=== PATIENT | female | born 1955 | race Caucasian/White ===

== ENCOUNTER 2023-08-02 16:00 | Emergency (ER) | payer MEDICARE ==
--- OUTSIDE RECORDS SUMMARY | 2023-08-02 16:08 | XMS REPORT | Continuity of Care Document ---
:1955 Author Organization [facility] t Address [address] [place] [address] [address] [place] [address] Care Team Providers Name Role Phone STEPHANIE BAI Primary Care Physician Unavailable Tracie Pérez Attending Clinician Unavailable Stephanie Bai Attending Clinician Unavailable Amanda Cerda Attending Clinician Unavailable EARLE_GCBZW_Beto_Rodolfo Attending Clinician Unavailable Leonora Hernandez Attending Clinician Carline Attending Clinician Unavailable Mauricio Escobar Attending Clinician Unavailable Sheth_M Attending Clinician Unavailable BWilliams Attending Clinician Unavailable Bayron Pelletier Attending Clinician UNKNOWN, ATTENDING Attending Clinician Unavailable Only, Ang Db Test Attending Clinician Unavailable [place] SUPERINTENDENT [employer], Rania Attending Clinician JANETT CHAHAL Attending Clinician Unavailable Gladis Schwartz MD Attending Clinician GLADIS SCHWARTZ Attending Clinician Unavailable Tracie Pérez Admitting Clinician Unavailable [email or web address]_S Admitting Clinician Unavailable Nathan_b Admitting Clinician Unavailable Mauricio Escobar Admitting Clinician Unavailable Shecodey_M Admitting Clinician [facility] Admitting Clinician Unavailable GLADIS SCHWARTZ Admitting Clinician Unavailable Payers Payer Name Policy Type Policy Effective Date Expiration Date Sour ce Number [employer] [id number] 2021 (MEDICARE 00:00:00 REPLACEMENT HMO) MANAGED MEDICARE [id number] 2020 HMO GENERIC 00:00:00 [place] [id number] [facility] [place] [id number] [facility] [place] [id number] Common Spi rit - [facility] [place] [id number] [id number] Common Spi rit - [facility] Problems Condition Condition Condition Status Onset Resolution Last Treating Co mments Source Name Details Category Date Date Treatment Clinician Date Essential Essential Problem Com mon hypertensi (primary) Spi rit on hypertensi - [facility] on [facility] [id number] Mixed Problem Common hyperlipid Spirit emia - [facility] [id number] 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 cataract type [id number] Other Problem Common fecal Spirit abnormalit - [facility] ies [facility] [id number] Pain, Problem Commo n [id number] joint, Spirit shoulder, - [facility] left [facility] [id number] Cervical Problem Commo n pain Spirit (neck) - [facility] [id number] Encounter Problem Com mon for [id number] Cigarette Problem Com mon nicotine Spirit dependence - [facility] in [facility] Seasonal Seasonal Problem Commo n allergy allergies Spirit - [facility] Benign Benign Problem Common essential essential Spir it hypertensi hypertensi - [facility] on on [facility] Family Family Problem Common history of history of Sp gordon depression depression - [facility] COPD - Chronic Problem Common Chronic obstructiv Spiri t obstructiv e - [facility]I e pulmonary St pulmonary disease, [facility] disease unspecifie Medic al d COPD Center type [id number] Non-season Problem Com mon al Spirit allergic - [facility] rhinitis[facility] trigger [facility] [id number] Primary Problem Commo n osteoarthr Spirit itis - [facility] involving [facility] joints [facility] Allergies, Adverse Reactions, Alerts Allergy Allergy Status Severity Reaction(s) Onset Inactive Treating Comm ents Source Name Type Date Date Clinician No Known DA Active U [facility] Allergie 8-10 [place] s 00:00: d 00 [facility] NO KNOWN Drug Active Univers ALLERGIE Class ity [facility] Social History Social Habit Start Date Stop Date Quantity Comments Source History of Current Smoker Common Spi rit - Tobacco Use [facility] Exposure to Not sure [facility] Branch Sex Assigned At [birth year] [facility] 00:00:00 00:00:00 [facility] Smoking Status Start Date Stop Date Source Unknown if ever smoked [facility] y [facility] Current Smoker 2023-01-19 00:00:00 Common Spiri t - [facility] Medications Ordered Filled Start Stop Current Ordering Indication Dosage Frequency Signature Comments Components Source Medication Medication Date Date Medication? Clinician (SIG) Name Name Medrol 4 MG Medrol 4 MG No Medrol 4 4-11 MG 00:00: 00 Medrol 4 MG Medrol 4 MG No Medrol 4 4-11 MG 00:00: 00 Medrol 4 MG Medrol 4 MG No Medrol 4 4-11 MG 00:00: 00 Medrol 4 MG Medrol 4 MG No Medrol 4 4-11 MG 00:00: 00 Medrol 4 MG Medrol 4 MG No Medrol 4 4-11 MG 00:00: 00 Medrol 4 MG Medrol 4 MG 0 No Medrol 4 4-11 MG 00:00: 00 Mobic 7.5 Mobic 7.5 2021- No 1{table QD Mobic 7.5 MG MG 4-11 05-11 t} MG 00:00: 00:00 00 :00 Mobic 7.5 Mobic 7.5 0 2021- No 1{table QD Mobic 7.5 MG MG 4-11 05-11 t} MG 00:00: 00:00 00 :00 Mobic 7.5 Mobic 7.5 0 2021- No 1{table QD Mobic 7.5 MG MG 4-11 05-11 t} MG 00:00: 00:00 00 :00 Losartan Losartan 2021-0 No 1{table QD Losartan Potassium Potassium 3-04 t} Potassium 100 MG 100 MG 00:00: 100 MG 00 Losartan Losartan 2021-0 No 1{table QD Losartan Potassium Potassium 3-04 t} Potassium 100 MG 100 MG 00:00: 100 MG 00 Losartan Losartan 2021-0 No 1{table QD Losartan Potassium Potassium 3-04 t} Potassium 100 MG 100 MG 00:00: 100 MG 00 Losartan Losartan 2021-0 No 1{table QD Losartan Potassium Potassium 3-04 t} Potassium 100 MG 100 MG 00:00: 100 MG 00 Losartan Losartan 2021-0 No 1{table QD Losartan Potassium Potassium 3-04 t} Potassium 100 MG 100 MG 00:00: 100 MG 00 Losartan Losartan 2021-0 No 1{table QD Losartan Potassium Potassium 3-04 t} Potassium 100 MG 100 MG 00:00: 100 MG 00 Losartan Losartan 2021-0 No 1{table QD Losartan Potassium Potassium 3-04 t} Potassium 100 MG 100 MG 00:00: 100 MG 00 Varenicline Varenicline 2021- No BID Vareniclin Tartrate 1 Tartrate 1 12-3015 e Tartrate MG MG 00:00: 00:00 1 MG 00 :00 Varenicline Varenicline 2021- No BID Vareniclin Tartrate 1 Tartrate 1 12-3015 e Tartrate MG MG 00:00: 00:00 1 MG 00 :00 Varenicline Varenicline 2021- No BID Vareniclin Tartrate 1 Tartrate 1 12-30-15 e Tartrate MG MG 00:00: 00:00 1 MG 00 :00 Varenicline Varenicline 2021- No BID Vareniclin Tartrate 1 Tartrate 1 3-04 08-03 e Tartrate MG MG 00:00: 00:00 1 MG 00 :00 Varenicline Varenicline 0 2021- No BID Vareniclin Tartrate 1 Tartrate 1 12-30 e Tartrate MG MG 00:00: 00:00 1 MG 00 :00 Varenicline Varenicline 2021-0 2- No BID Vareniclin Tartrate 1 Tartrate 1 12-30 e Tartrate MG MG 00:00: 00:00 1 MG 00 :00 Varenicline Varenicline 2021-0 2- No BID Vareniclin Tartrate 1 Tartrate 1 12-30 e Tartrate MG MG 00:00: 00:00 1 MG 00 :00 Varenicline Varenicline 2021-0 2021- No BID Vareniclin Tartrate 1 Tartrate 1 12-30 e Tartrate MG MG 00:00: 00:00 1 MG 00 :00 Varenicline Varenicline 2021-0 2021- No BID Vareniclin Tartrate 1 Tartrate 1 12-30 e Tartrate MG MG 00:00: 00:00 1 MG 00 :00 Varenicline Varenicline 0 2- No BID Vareniclin Tartrate 1 Tartrate 1 12-30 e Tartrate MG MG 00:00: 00:00 1 MG 00 :00 Varenicline Varenicline 0 2- No QD Vareniclin Tartrate Tartrate 12-30 e Tartrate 0.5 MG 0.5 MG 00:00: 00:00 0.5 MG 00 :00 Meloxicam Meloxicam 2- No 1{table QD Meloxicam 7.5 MG 7.5 MG 12-30 t} 7.5 MG 00:00: 00:00 00 :00 Atorvastati Atorvastati 2020- No 1{table QD Atorvastat n Calcium n Calcium 2-03 t} in Calcium 40 MG 40 MG 00:00: 40 MG 00 Atorvastati Atorvastati 2020- No 1{table QD Atorvastat n Calcium n Calcium 2-03 t} in Calcium 40 MG 40 MG 00:00: 40 MG 00 Atorvastati Atorvastati 2020-10 No 1{table QD Atorvastat n Calcium n Calcium 2-03 t} in Calcium 40 MG 40 MG 00:00: 40 MG 00 Atorvastati Atorvastati 2020-10 No 1{table QD n Calcium n Calcium 2-03 t} 40 MG 40 MG 00:00: 00 Atorvastati Atorvastati 2020-10 No 1{table QD Atorvastat n Calcium n Calcium 2-03 t} in Calcium 40 MG 40 MG 00:00: 40 MG 00 Atorvastati Atorvastati 2020-10 No 1{table QD Atorvastat n Calcium n Calcium 2-03 t} in Calcium 40 MG 40 MG 00:00: 40 MG 00 Atorvastati Atorvastati 2020-10 No 1{table QD Atorvastat n Calcium n Calcium 2-03 t} in Calcium 40 MG 40 MG 00:00: 40 MG 00 Atorvastati Atorvastati 2020-10 No 1{table QD Atorvastat n Calcium n Calcium 2-03 t} in Calcium 40 MG 40 MG 00:00: 40 MG 00 methylpredn 2020-10 No 125mg 125 mg, U nivers isolone sod 11-13 Slow IV ity of succ 04:00: 03:02 Push, ONCE [place] (SOLU-MEDRO 00 :00 NOW, 1 Medica l L) dose, On Branch injection Mon 125 mg 09/12/21 at 2200, ANGELA FENTanyl PF 2020-10- No 100ug 100 mcg, Univers (SUBLIMAZE 11-13 Slow IV ity o f (PF)) 04:00: 03:02 Push, [place] injection 00 :00 ONCE, 1 Medical 100 mcg dose, On Branch 09/12/21 at 2200, Routine ondansetron 2020-10- No 4mg 4 mg, Slow Univers (ZOFRAN 11-13 IV Push, ity of (PF)) 02:30: 01:30 ONCE, 1 [place] injection 4 00 :00 dose, On Medi elie mg Mon Branch 09/12/21 at 2030, ANGELA morpHINE 2020-10- No 4mg 4 mg, Slow Un elizabeth injection 4 1-16 11-16 IV Push, ity of mg 02:15: 01:30 ONCE, 1 [place] 00 :00 dose, On Medical Mon Branch 09/12/21 at 2015, ANGELA methylPREDN 2020-10 Yes [id number] Take by [facility] ISolone 4 1-15 mouth ity of mg tablets 00:00: [place]INSTRU [place] 00 CTIONS. Medical follow Branch package directions methylPREDN 2020-10 Yes [id number] Take by [facility] ISolone 4 1-15 mouth ity of mg tablets 00:00: SEE-INSTRU [place] 00 CTIONS. Medical follow Branch package directions HYDROcodone 2020-10- No [id number] 1{tbl} Take 1 U nivers -acetaminop 15 - tablet by it y of arianna (NORCO) 00:00: 05:59 mouth [place] 7.5-325 mg 00 :00 every 8 Medica l per tablet (eight) Branch hours as needed for Pain for up to 7 days. Indication s: acute pain Diclofenac Diclofenac 2020-10- No QID Diclofenac Sodium 1 % Sodium 1 % 0-04 11-03 Sodium 1 % 00:00: 00:00 00 :00 Diclofenac Diclofenac 2020-10- No QID Diclofenac Sodium 1 % Sodium 1 % 0-04 11-03 Sodium 1 % 00:00: 00:00 00 :00 Diclofenac Diclofenac 2020-10- No QID Diclofenac Sodium 1 % Sodium 1 % 0-04 11-03 Sodium 1 % 00:00: 00:00 00 :00 Losartan Losartan 2019-0 Yes Amanda 1 tablet Common Potassium Potassium 9-11 Prashant Spir it 00:00: - [facility] 00 [facility] Budesonide- Budesonide- 2020-0 2020- No Amanda 2 puffs Common Formoterol Formoterol 9-11 12-10 Prashant S pirit Fumarate Fumarate 00:00: 00:00 - CH I 00 :00 [facility] Losartan Losartan No 1{table QD Losartan Potassium Potassium t} Potassium 100 MG 100 MG 100 MG Ipratropium Ipratropium No 1{puff_ QID Ipratropiu -Albuterol -Albuterol as_need m-Albutero 20-100 20-100 ed} l 20-100 MCG/ACT MCG/ACT MCG/ACT EQ Allergy EQ Allergy No EQ Allergy Relief 10 Relief 10 Relief 10 MG MG MG Breztri Breztri No 2{puffs BID Breztri Aerosphere Aerosphere } Aerosphere 160-9-4.8 160-9-4.8 160-9-4.8 MCG/ACT MCG/ACT MCG/ACT hydroCHLORO hydroCHLORO No 1{table QD hydroCHLOR thiazide 25 thiazide 25 t_in_th Othiazide MG MG e_morni 25 MG ng} Losartan Losartan No 1{table QD Losartan Potassium Potassium t} Potassium 50 MG 50 MG 50 MG Claritin 10 Claritin 10 No 1{table QD Claritin MG MG t} 10 MG Ipratropium Ipratropium No 1{puff_ QID Ipratropiu -Albuterol -Albuterol as_need m-Albutero 20-100 20-100 ed} l 20-100 MCG/ACT MCG/ACT MCG/ACT Breztri Breztri No 2{puffs BID Breztri Aerosphere Aerosphere } Aerosphere 160-9-4.8 160-9-4.8 160-9-4.8 MCG/ACT MCG/ACT MCG/ACT hydroCHLORO hydroCHLORO No hydroCHLOR thiazide 25 thiazide 25 Othiazide MG MG 25 MG hydroCHLORO hydroCHLORO No hydroCHLOR thiazide 25 thiazide 25 Othiazide MG MG 25 MG Breztri Breztri No 2{puffs BID Breztri Aerosphere Aerosphere } Aerosphere 160-9-4.8 160-9-4.8 160-9-4.8 MCG/ACT MCG/ACT MCG/ACT Ipratropium Ipratropium No 1{puff_ QID Ipratropiu -Albuterol -Albuterol as_need m-Albutero 20-100 20-100 ed} l 20-100 MCG/ACT MCG/ACT MCG/ACT Losartan Losartan No 1{table QD Losartan Potassium Potassium t} Potassium 50 MG 50 MG 50 MG Claritin 10 Claritin 10 No 1{table QD Claritin MG MG t} 10 MG hydroCHLORO hydroCHLORO No hydroCHLOR thiazide 25 thiazide 25 Othiazide MG MG 25 MG Breztri Breztri No 2{puffs BID Breztri Aerosphere Aerosphere } Aerosphere 160-9-4.8 160-9-4.8 160-9-4.8 MCG/ACT MCG/ACT MCG/ACT Ipratropium Ipratropium No 1{puff_ QID Ipratropiu -Albuterol -Albuterol as_need m-Albutero 20-100 20-100 ed} l 20-100 MCG/ACT MCG/ACT MCG/ACT Losartan Losartan No 1{table QD Losartan Potassium Potassium t} Potassium 50 MG 50 MG 50 MG Claritin 10 Claritin 10 No 1{table QD Claritin MG MG t} 10 MG Ipratropium Ipratropium No 1{puff_ QID Ipratropiu -Albuterol -Albuterol as_need m-Albutero 20-100 20-100 ed} l 20-100 MCG/ACT MCG/ACT MCG/ACT Claritin 10 Claritin 10 No 1{table QD Claritin MG MG t} 10 MG hydroCHLORO hydroCHLORO No 1{table QD hydroCHLOR thiazide 25 thiazide 25 t_in_th Othiazide MG MG e_morni 25 MG ng} Losartan Losartan No 1{table QD Losartan Potassium Potassium t} Potassium 50 MG 50 MG 50 MG Breztri Breztri No 2{puffs BID Breztri Aerosphere Aerosphere } Aerosphere 160-9-4.8 160-9-4.8 160-9-4.8 MCG/ACT MCG/ACT MCG/ACT Ipratropium Ipratropium No 1{puff_ QID Ipratropiu -Albuterol -Albuterol as_need m-Albutero 20-100 20-100 ed} l 20-100 MCG/ACT MCG/ACT MCG/ACT Claritin 10 Claritin 10 No 1{table QD Claritin MG MG t} 10 MG hydroCHLORO hydroCHLORO No 1{table QD hydroCHLOR thiazide 25 thiazide 25 t_in_th Othiazide MG MG e_morni 25 MG ng} Losartan Losartan No 1{table QD Losartan Potassium Potassium t} Potassium 50 MG 50 MG 50 MG Breztri Breztri No 2{puffs BID Breztri Aerosphere Aerosphere } Aerosphere 160-9-4.8 160-9-4.8 160-9-4.8 MCG/ACT MCG/ACT MCG/ACT Ipratropium Ipratropium No 1{puff_ QID Ipratropiu -Albuterol -Albuterol as_need m-Albutero 20-100 20-100 ed} l 20-100 MCG/ACT MCG/ACT MCG/ACT Claritin 10 Claritin 10 No 1{table QD Claritin MG MG t} 10 MG hydroCHLORO hydroCHLORO No 1{table QD hydroCHLOR thiazide 25 thiazide 25 t_in_th Othiazide MG MG e_morni 25 MG ng} Losartan Losartan No 1{table QD Losartan Potassium Potassium t} Potassium 50 MG 50 MG 50 MG Breztri Breztri No 2{puffs BID Breztri Aerosphere Aerosphere } Aerosphere 160-9-4.8 160-9-4.8 160-9-4.8 MCG/ACT MCG/ACT MCG/ACT Ipratropium Ipratropium No 1{puff_ QID -Albuterol -Albuterol as_need 20-100 20-100 ed} MCG/ACT MCG/ACT Breztri Breztri No 2{puffs BID Aerosphere Aerosphere } 160-9-4.8 160-9-4.8 MCG/ACT MCG/ACT hydroCHLORO hydroCHLORO No 1{table QD thiazide 25 thiazide 25 t_in_th MG MG e_morni ng} Claritin 10 Claritin 10 No 1{table QD MG MG t} Losartan Losartan No 1{table QD Potassium Potassium t} 50 MG 50 MG Ipratropium Ipratropium No 1{puff_ QID Ipratropiu -Albuterol -Albuterol as_need m-Albutero 20-100 20-100 ed} l 20-100 MCG/ACT MCG/ACT MCG/ACT Breztri Breztri No 2{puffs BID Breztri Aerosphere Aerosphere } Aerosphere 160-9-4.8 160-9-4.8 160-9-4.8 MCG/ACT MCG/ACT MCG/ACT hydroCHLORO hydroCHLORO No 1{table QD hydroCHLOR thiazide 25 thiazide 25 t_in_th Othiazide MG MG e_morni 25 MG ng} Claritin 10 Claritin 10 No 1{table QD Claritin MG MG t} 10 MG Losartan Losartan No 1{table QD Losartan Potassium Potassium t} Potassium 50 MG 50 MG 50 MG Ipratropium Ipratropium No 1{puff_ QID Ipratropiu -Albuterol -Albuterol as_need m-Albutero 20-100 20-100 ed} l 20-100 MCG/ACT MCG/ACT MCG/ACT Breztri Breztri No 2{puffs BID Breztri Aerosphere Aerosphere } Aerosphere 160-9-4.8 160-9-4.8 160-9-4.8 MCG/ACT MCG/ACT MCG/ACT hydroCHLORO hydroCHLORO No 1{table QD hydroCHLOR thiazide 25 thiazide 25 t_in_th Othiazide MG MG e_morni 25 MG ng} Claritin 10 Claritin 10 No 1{table QD Claritin MG MG t} 10 MG Losartan Losartan No 1{table QD Losartan Potassium Potassium t} Potassium 50 MG 50 MG 50 MG Ipratropium Ipratropium No 1{puff_ QID Ipratropiu -Albuterol -Albuterol as_need m-Albutero 20-100 20-100 ed} l 20-100 MCG/ACT MCG/ACT MCG/ACT Breztri Breztri No 2{puffs BID Breztri Aerosphere Aerosphere } Aerosphere 160-9-4.8 160-9-4.8 160-9-4.8 MCG/ACT MCG/ACT MCG/ACT hydroCHLORO hydroCHLORO No 1{table QD hydroCHLOR thiazide 25 thiazide 25 t_in_th Othiazide MG MG e_morni 25 MG ng} Claritin 10 Claritin 10 No 1{table QD Claritin MG MG t} 10 MG Losartan Losartan No 1{table QD Losartan Potassium Potassium t} Potassium 50 MG 50 MG 50 MG Ipratropium Ipratropium No 1{puff_ QID Ipratropiu -Albuterol -Albuterol as_need m-Albutero 20-100 20-100 ed} l 20-100 MCG/ACT MCG/ACT MCG/ACT Breztri Breztri No 2{puffs BID Breztri Aerosphere Aerosphere } Aerosphere 160-9-4.8 160-9-4.8 160-9-4.8 MCG/ACT MCG/ACT MCG/ACT hydroCHLORO hydroCHLORO No 1{table QD hydroCHLOR thiazide 25 thiazide 25 t_in_th Othiazide MG MG e_morni 25 MG ng} Claritin 10 Claritin 10 No 1{table QD Claritin MG MG t} 10 MG Losartan Losartan No 1{table QD Losartan Potassium Potassium t} Potassium 50 MG 50 MG 50 MG Ipratropium Ipratropium No 1{puff_ QID Ipratropiu -Albuterol -Albuterol as_need m-Albutero 20-100 20-100 ed} l 20-100 MCG/ACT MCG/ACT MCG/ACT Losartan Losartan No 1{table QD Losartan Potassium Potassium t} Potassium 50 MG 50 MG 50 MG hydroCHLORO hydroCHLORO No 1{table QD hydroCHLOR thiazide 25 thiazide 25 t_in_th Othiazide MG MG e_morni 25 MG ng} Atorvastati Atorvastati No 1{table QD Atorvastat n Calcium n Calcium t} in Calcium 40 MG 40 MG 40 MG Ipratropium Ipratropium No 1{puff_ QID Ipratropiu -Albuterol -Albuterol as_need m-Albutero 20-100 20-100 ed} l 20-100 MCG/ACT MCG/ACT MCG/ACT Losartan Losartan No 1{table QD Losartan Potassium Potassium t} Potassium 50 MG 50 MG 50 MG hydroCHLORO hydroCHLORO No 1{table QD hydroCHLOR thiazide 25 thiazide 25 t_in_th Othiazide MG MG e_morni 25 MG ng} Atorvastati Atorvastati No 1{table QD Atorvastat n Calcium n Calcium t} in Calcium 40 MG 40 MG 40 MG Ipratropium Ipratropium No 1{puff_ QID Ipratropiu -Albuterol -Albuterol as_need m-Albutero 20-100 20-100 ed} l 20-100 MCG/ACT MCG/ACT MCG/ACT Losartan Losartan No 1{table QD Losartan Potassium Potassium t} Potassium 50 MG 50 MG 50 MG hydroCHLORO hydroCHLORO No 1{table QD hydroCHLOR thiazide 25 thiazide 25 t_in_th Othiazide MG MG e_morni 25 MG ng} Atorvastati Atorvastati No 1{table QD Atorvastat n Calcium n Calcium t} in Calcium 40 MG 40 MG 40 MG Ipratropium Ipratropium No 1{puff_ QID Ipratropiu -Albuterol -Albuterol as_need m-Albutero 20-100 20-100 ed} l 20-100 MCG/ACT MCG/ACT MCG/ACT hydroCHLORO hydroCHLORO No 1{table QD hydroCHLOR thiazide 25 thiazide 25 t_in_th Othiazide MG MG e_morni 25 MG ng} Atorvastati Atorvastati No 1{table QD Atorvastat n Calcium n Calcium t} in Calcium 40 MG 40 MG 40 MG Losartan Losartan No 1{table QD Losartan Potassium Potassium t} Potassium 50 MG 50 MG 50 MG Atorvastati Atorvastati No 1{table QD Atorvastat n Calcium n Calcium t} in Calcium 40 MG 40 MG 40 MG hydroCHLORO hydroCHLORO No 1{table QD hydroCHLOR thiazide 25 thiazide 25 t_in_th Othiazide MG MG e_morni 25 MG ng} Ipratropium Ipratropium No 1{puff_ QID Ipratropiu -Albuterol -Albuterol as_need m-Albutero 20-100 20-100 ed} l 20-100 MCG/ACT MCG/ACT MCG/ACT Losartan Losartan No 1{table QD Losartan Potassium Potassium t} Potassium 50 MG 50 MG 50 MG Atorvastati Atorvastati No 1{table QD Atorvastat n Calcium n Calcium t} in Calcium 40 MG 40 MG 40 MG hydroCHLORO hydroCHLORO No 1{table QD hydroCHLOR thiazide 25 thiazide 25 t_in_th Othiazide MG MG e_morni 25 MG ng} Ipratropium Ipratropium No 1{puff_ QID Ipratropiu -Albuterol -Albuterol as_need m-Albutero 20-100 20-100 ed} l 20-100 MCG/ACT MCG/ACT MCG/ACT Losartan Losartan No 1{table QD Losartan Potassium Potassium t} Potassium 50 MG 50 MG 50 MG hydroCHLORO hydroCHLORO No 1{table QD hydroCHLOR thiazide 25 thiazide 25 t_in_th Othiazide MG MG e_morni 25 MG ng} Losartan Losartan No 1{table QD Losartan Potassium Potassium t} Potassium 50 MG 50 MG 50 MG Ipratropium Ipratropium No 1{puff_ QID Ipratropiu -Albuterol -Albuterol as_need m-Albutero 20-100 20-100 ed} l 20-100 MCG/ACT MCG/ACT MCG/ACT Atorvastati Atorvastati No 1{table QD Atorvastat n Calcium n Calcium t} in Calcium 40 MG 40 MG 40 MG Ipratropium Ipratropium No 1{puff_ QID Ipratropiu -Albuterol -Albuterol as_need m-Albutero 20-100 20-100 ed} l 20-100 MCG/ACT MCG/ACT MCG/ACT hydroCHLORO hydroCHLORO No 1{table QD hydroCHLOR thiazide 25 thiazide 25 t_in_th Othiazide MG MG e_morni 25 MG ng} Atorvastati Atorvastati No 1{table QD Atorvastat n Calcium n Calcium t} in Calcium 40 MG 40 MG 40 MG Losartan Losartan No 1{table QD Losartan Potassium Potassium t} Potassium 100 MG 100 MG 100 MG Breztri Breztri No 2{puffs BID Breztri Aerosphere Aerosphere } Aerosphere 160-9-4.8 160-9-4.8 160-9-4.8 MCG/ACT MCG/ACT MCG/ACT Ipratropium Ipratropium No 1{puff_ QID Ipratropiu -Albuterol -Albuterol as_need m-Albutero 20-100 20-100 ed} l 20-100 MCG/ACT MCG/ACT MCG/ACT hydroCHLORO hydroCHLORO No 1{table QD hydroCHLOR thiazide 25 thiazide 25 t_in_th Othiazide MG MG e_morni 25 MG ng} Atorvastati Atorvastati No 1{table QD Atorvastat n Calcium n Calcium t} in Calcium 40 MG 40 MG 40 MG Losartan Losartan No 1{table QD Losartan Potassium Potassium t} Potassium 100 MG 100 MG 100 MG Breztri Breztri No 2{puffs BID Breztri Aerosphere Aerosphere } Aerosphere 160-9-4.8 160-9-4.8 160-9-4.8 MCG/ACT MCG/ACT MCG/ACT Ipratropium Ipratropium No 1{puff_ QID Ipratropiu -Albuterol -Albuterol as_need m-Albutero 20-100 20-100 ed} l 20-100 MCG/ACT MCG/ACT MCG/ACT hydroCHLORO hydroCHLORO No 1{table QD hydroCHLOR thiazide 25 thiazide 25 t_in_th Othiazide MG MG e_morni 25 MG ng} Atorvastati Atorvastati No 1{table QD Atorvastat n Calcium n Calcium t} in Calcium 40 MG 40 MG 40 MG Losartan Losartan No 1{table QD Losartan Potassium Potassium t} Potassium 100 MG 100 MG 100 MG Breztri Breztri No 2{puffs BID Breztri Aerosphere Aerosphere } Aerosphere 160-9-4.8 160-9-4.8 160-9-4.8 MCG/ACT MCG/ACT MCG/ACT Atorvastati Atorvastati No 1{table QD Atorvastat n Calcium n Calcium t} in Calcium 40 MG 40 MG 40 MG Varenicline Varenicline No Vareniclin Tartrate 1 Tartrate 1 e Tartrate MG MG 1 MG Losartan Losartan No 1{table QD Losartan Potassium Potassium t} Potassium 100 MG 100 MG 100 MG Ipratropium Ipratropium No 1{puff_ QID Ipratropiu -Albuterol -Albuterol as_need m-Albutero 20-100 20-100 ed} l 20-100 MCG/ACT MCG/ACT MCG/ACT EQ Allergy EQ Allergy No EQ Allergy Relief 10 Relief 10 Relief 10 MG MG MG Breztri Breztri No 2{puffs BID Breztri Aerosphere Aerosphere } Aerosphere 160-9-4.8 160-9-4.8 160-9-4.8 MCG/ACT MCG/ACT MCG/ACT hydroCHLORO hydroCHLORO No 1{table QD hydroCHLOR thiazide 25 thiazide 25 t_in_th Othiazide MG MG e_morni 25 MG ng} Breztri Breztri No 2{puffs BID Breztri Aerosphere Aerosphere } Aerosphere 160-9-4.8 160-9-4.8 160-9-4.8 MCG/ACT MCG/ACT MCG/ACT Losartan Losartan No 1{table QD Losartan Potassium Potassium t} Potassium 100 MG 100 MG 100 MG hydroCHLORO hydroCHLORO No 1{table QD hydroCHLOR thiazide 25 thiazide 25 t_in_th Othiazide MG MG e_morni 25 MG ng} Varenicline Varenicline No Vareniclin Tartrate 1 Tartrate 1 e Tartrate MG MG 1 MG EQ Allergy EQ Allergy No EQ Allergy Relief 10 Relief 10 Relief 10 MG MG MG Ipratropium Ipratropium No 1{puff_ QID Ipratropiu -Albuterol -Albuterol as_need m-Albutero 20-100 20-100 ed} l 20-100 MCG/ACT MCG/ACT MCG/ACT Atorvastati Atorvastati No 1{table QD Atorvastat n Calcium n Calcium t} in Calcium 40 MG 40 MG 40 MG Atorvastati Atorvastati No 1{table QD Atorvastat n Calcium n Calcium t} in Calcium 40 MG 40 MG 40 MG Varenicline Varenicline No Vareniclin Tartrate 1 Tartrate 1 e Tartrate MG MG 1 MG Claritin 10 Claritin 10 2021- No 1{table QD Claritin MG MG 07-13 t} 10 MG 00:00 :00 Claritin 10 Claritin 10 2021- No 1{table QD Claritin MG MG 07-13 t} 10 MG 00:00 :00 Claritin 10 Claritin 10 2021- No 1{table QD Claritin MG MG 07-13 t} 10 MG 00:00 :00 Claritin 10 Claritin 10 2021- No 1{table QD Claritin MG MG 03-30 t} 10 MG 00:00 :00 Breztri Breztri 2021- No 2{puffs BID Breztri Sandagphere Aerosphere 03-30 } Aerosphere 160-9-4.8 160-9-4.8 00:00 160-9-4.8 MCG/ACT MCG/ACT :00 MCG/ACT Claritin 10 Claritin 10 2021- No 1{table QD Claritin MG MG 03-30 t} 10 MG 00:00 :00 Breztri Breztri 2021- No 2{puffs BID Breztri Aerosphere Aerosphere 03-30 } Aerosphere 160-9-4.8 160-9-4.8 00:00 160-9-4.8 MCG/ACT MCG/ACT :00 MCG/ACT Claritin 10 Claritin 10 2021- No 1{table QD Claritin MG MG 03-30 t} 10 MG 00:00 :00 Breztri Breztri 2021- No 2{puffs BID Breztri Aerosphere Aerosphere 03-30 } Aerosphere 160-9-4.8 160-9-4.8 00:00 160-9-4.8 MCG/ACT MCG/ACT :00 MCG/ACT Claritin 10 Claritin 10 1{table QD Claritin MG MG 03-30 t} 10 MG 00:00 :00 Breztri Breztri No 2{puffs BID Breztri Aerosphere Aerosphere 03-30 } Aerosphere 160-9-4.8 160-9-4.8 00:00 160-9-4.8 MCG/ACT MCG/ACT :00 MCG/ACT Breztri Breztri No 2{puffs BID Breztri Aerosphere Aerosphere 03-30 } Aerosphere 160-9-4.8 160-9-4.8 00:00 160-9-4.8 MCG/ACT MCG/ACT :00 MCG/ACT Claritin 10 Claritin 10 No 1{table QD Claritin MG MG 03-30 t} 10 MG 00:00 :00 Breztri Breztri No 2{puffs BID Breztri Aerosphere Aerosphere 03-30 } Aerosphere 160-9-4.8 160-9-4.8 00:00 160-9-4.8 MCG/ACT MCG/ACT :00 MCG/ACT Claritin 10 Claritin 10 No 1{table QD Claritin MG MG 03-30 t} 10 MG 00:00 :00 Vital Signs Vital Name Observation Time Observation Value Comments Source height 2022-07-25 14:00:00 65.5 [in_i] [facility] S [facility] weight 2022-07-25 14:00:00 153 [lb_av] [facility] bmi 2022-07-25 14:00:00 25.07 kg/m2 [facility] height 2022-04-14 14:40:00 65.5 [in_i] Common S pirit [facility] weight 2022-04-14 14:40:00 151.0 [lb_av] Common [facility] temperature 2022-04-14 14:40:00 97.7 [degF] Common S pirit [facility] bmi 2022-04-14 14:40:00 24.74 kg/m2 [facility] oximetry 2022-04-14 14:40:00 98 % [facility] respiratory rate 2022-04-14 14:40:00 16 /min Comm on [facility] blood pressure 2022-04-14 14:40:00 132 mm[Hg] Common [facility] - systolic [facility] blood pressure 2022-04-14 14:40:00 78 mm[Hg] Common [facility] - diastolic [facility] height 2022-02-06 14:30:00 65.5 [in_i] Common [facility] weight 2022-02-06 14:30:00 157 [lb_av] [facility] bmi 2022-02-06 14:30:00 25.73 kg/m2 Common [facility] blood pressure 2022-02-06 14:30:00 132 mm[Hg] Common [facility] - systolic [facility] blood pressure 2022-02-06 14:30:00 82 mm[Hg] Common [facility] - diastolic [facility] height 2021-12-30 13:20:00 65.5 [in_i] Common [facility] weight 2021-12-30 13:20:00 160.0 [lb_av] Common [facility] temperature 2021-12-30 13:20:00 97.2 [degF] Common [facility] bmi 2021-12-30 13:20:00 26.22 kg/m2 [facility] oximetry 2021-12-30 13:20:00 97 % [facility] respiratory rate 2021-12-30 13:20:00 16 /min Comm on [facility] blood pressure 2021-12-30 13:20:00 142 mm[Hg] Common [facility] - systolic [facility] blood pressure 2021-12-30 13:20:00 76 mm[Hg] Common [facility] - diastolic [facility] height 2021-11-15 11:40:00 65.5 [in_i] [facility] weight 2021-11-15 11:40:00 159 [lb_av] [facility] bmi 2021-11-15 11:40:00 26.05 kg/m2 Common [facility] height 2021-09-30 16:40:00 65.5 [in_i] [facility] weight 2021-09-30 16:40:00 159.0 [lb_av] [facility] temperature 2021-09-30 16:40:00 97.3 [degF] [facility] bmi 2021-09-30 16:40:00 26.05 kg/m2 [facility] oximetry 2021-09-30 16:40:00 98 % [facility] respiratory rate 2021-09-30 16:40:00 16 /min Comm on [facility] blood pressure 2021-09-30 16:40:00 138 mm[Hg] Common [facility] - systolic [facility] blood pressure 2021-09-30 16:40:00 80 mm[Hg] Common [facility] - diastolic [facility] Systolic blood 2021-09-13 03:00:00 143 mm[Hg] Univer sity of pressure [facility] Diastolic blood 2021-09-13 03:00:00 70 mm[Hg] Unive rsity of pressure [facility] Heart rate 2021-09-13 03:00:00 78 /min Universi ty [facility] Respiratory rate 2021-09-13 03:00:00 18 /min [facility] Oxygen saturation in 2021-09-13 03:00:00 93 /min [facility] Arterial blood by [facility] Pulse oximetry Branch Body temperature 2021-09-13 01:01:[address] [facility] Body height 2021-09-13 01:01:00 167.6 cm [facility] Body weight 2021-09-13 01:01:00 68.04 kg [facility] BMI 2021-09-13 01:01:00 24.21 kg/m2 [facility] height 2021-08-31 14:00:00 65.5 [in_i] Common [facility] weight 2021-08-31 14:00:00 160.8 [lb_av] [facility] temperature 2021-08-31 14:00:00 97.6 [degF] Common [facility] bmi 2021-08-31 14:00:00 26.35 kg/m2 [facility] oximetry 2021-08-31 14:00:00 96 % [facility] respiratory rate 2021-08-31 14:00:00 16 /min Comm on [facility] blood pressure 2021-08-31 14:00:00 142 mm[Hg] Common [facility] - systolic [facility] blood pressure 2021-08-31 14:00:00 81 mm[Hg] Common [facility] - diastolic [facility] height 2021-08-31 14:00:00 65.5 [in_i] [facility] weight 2021-08-31 14:00:00 160.8 [lb_av] [facility] temperature 2021-08-31 14:00:00 97.6 [degF] Common [facility] bmi 2021-08-31 14:00:00 26.35 kg/m2 [facility] oximetry 2021-08-31 14:00:00 96 % Common [facility] respiratory rate 2021-08-31 14:00:00 16 /min Comm on [facility] blood pressure 2021-08-31 14:00:00 142 mm[Hg] Common [facility] - systolic [facility] blood pressure 2021-08-31 14:00:00 81 mm[Hg] [facility] - diastolic [facility] height 2021-08-01 09:30:00 65.5 [in_i] [facility] weight 2021-08-01 09:30:00 159.8 [lb_av] [facility] temperature 2021-08-01 09:30:00 98.1 [degF] [facility] bmi 2021-08-01 09:30:00 26.18 kg/m2 [facility] oximetry 2021-08-01 09:30:00 98 % [facility] respiratory rate 2021-08-01 09:30:00 16 /min Comm on [facility] blood pressure 2021-08-01 09:30:00 132 mm[Hg] [facility] - systolic [facility] blood pressure 2021-08-01 09:30:00 82 mm[Hg] [facility] diastolic [facility] Procedures Procedure Date / Time Performed Performing Clinician Sourc e [id number] 2023-03-01 00:00:00 [facility] [id number] 2023-03-01 00:00:00 [facility] [id number] 2023-03-01 00:00:00 [facility] [id number] 2023-03-01 00:00:00 [facility] [id number] 2023-03-01 00:00:00 [facility] XR SPINE THORACIC 3 2021-09-13 01:54:53 Gladis Schwartz [facility] VW Medical Branch XR SHOULDER 2+ VW 2021-09-13 01:54:53 Gladis Schwartz [facility] LEFT Medical Branch CT CERVICAL SPINE WO 2021-09-13 01:39:17 Gladis Schwartz [facility] CONTRAST Medical Branch NOTICE OF PRIVACY 2021-09-13 00:54:03 Doctor Unassigned, No Univ [facility] PRACTICES Name Medical Branch CONSENT/REFUSAL FOR 2021-09-13 00:53:31 Doctor Unassigned, No [facility] [place] DIAGNOSIS AND Name Medical Branch TREATMENT Encounters Start End Encounter Admission Attending Care Care Encounter Source Date/Time Date/Time Type Type Clinicians Facility Department ID 2023-03-01 Inpatient AYANA Damian [id number] [facility] 08:00:00 Tracie Whaley [facility] 2023-01-18 Outpatient Bai, STLMLC STLMLC [id number] Common 09:41:01 Stephanie [facility] 2022-08-11 Outpatient Bai, STLMLC STLMLC [id number] Common 11:54:01 Stephanie [facility] 2022-07-14 Outpatient Bai, STLMLC STLMLC [id number] Common 15:32:01 Stephanie [facility] 2022-04-13 Outpatient Bai, STLMLC STLMLC [id number] Common 13:00:00 Stephanie [facility] 2022-01-03 Outpatient Bai, STLMLC STLMLC [id number] Common 15:45:02 Stephanie [facility] 2021-12-14 Outpatient Bai, STLMLC STLMLC [id number] Common 14:11:01 Stephanie [facility] 2021-11-23 Outpatient Bai, STLMLC STLMLC [id number] Common 14:39:31 Stephanie [facility] 2021-11-23 Outpatient Bai, STLMLC STLMLC [id number] Common 14:36:26 Stephanie [facility] 2021-11-23 Outpatient Bai, STLMLC STLMLC [id number] Common 14:35:44 Stephanie [facility] 2021-11-23 Outpatient Bai, STLMLC STLMLC [id number] Common 14:19:24 Stephanie [facility] 2021-11-23 Outpatient Bai, STLMLC STLMLC [id number] Common 14:09:18 Stephanie 15390 [facility] 2021-11-23 Outpatient Bai, STLMLC STLMLC [id number] Common 14:07:00 Stephanie [id number] [facility] 2021-11-23 Outpatient Bai, STLMLC STLMLC [id number] Common 13:56:10 Stephanie 72071 [facility] 2021-11-23 Outpatient STLMLC STLMLC [id number] Common 13:51:12 [id number] [facility] 2021-11-23 Outpatient STLMLC STLMLC [id number] Common 13:50:33 [id number] [facility] 2021-11-23 Outpatient STLMLC STLMLC [id number] Common 13:40:50 [id number] [facility] 2021-11-23 Outpatient Prashant, STLMLC STLMLC [id number] Common 12:36:59 Amanda [id number] [facility] 2021-11-23 Outpatient Prashant, STLMLC STLMLC [id number] Common 12:36:17 Amanda 87215 [facility] 2021-11-23 Outpatient Prashant, STLMLC STLMLC [id number] Common 12:12:51 Amanda [id number] [facility] 2021-11-23 Outpatient Prashant, STLMLC STLMLC [id number] Common 12:12:15 Amanda [id number] [facility] 2021-11-23 Outpatient Prashant, STLMLC STLMLC [id number] Common 12:11:56 Amanda 13255 [facility] 2021-11-23 Outpatient Prashant, STLMLC STLMLC [id number] Common 12:06:34 Amanda 56616 [facility] 2021-11-23 Outpatient Prashant, STLMLC STLMLC [id number] Common 11:56:10 Amanda 01033 [facility] 2021-11-23 Outpatient Prashant, STLMLC STLMLC [id number] Common 11:45:22 Amanda [id number] [facility] 2023-08-01 2023-08-01 Outpatient GC_GCBZW_Ka PRIV PRIV [id number] [facility] 00:00:00 00:00:00 diyala_S [id number] Medic al 2023-08-01 2023-08-01 Outpatient GC_GCBZW_Ka PRIV PRIV [id number] [facility] 00:00:00 00:00:00 diyala_S [id number] Medic al 2023-07-31 2023-07-31 Outpatient GC_GCBZW_Ka PRIV PRIV [id number] [facility] 00:00:00 00:00:00 diyala_S [id number] Medic al 2023-06-01 2023-06-01 Care Leonora 2.16.840. 2.16.840.1. CLAC [id number] [facility] 20:30:00 20:50:00 [employer] [facility] [place] [id number]. [id number] 35Y Medical Gap [id number] Closure [id number] 2023-04-13 2023-04-13 CAV Leonora 2.16.840. 2.16.840.1. [facility] [id number] [facility] 18:30:00 19:30:00 [place] [id number]. [id number]. 2CW Medical [id number] 2023-03-27 2023-03-27 Outpatient Daniels_b JANE DMG [id number] [facility] 00:00:00 00:00:00 0530 [facility] l [facility] 2023-03-22 2023-03-22 Outpatient Daniels_b BRI DMG [id number] [facility] 00:00:00 00:00:00 0525 Medica l Group 2023-02-28 2023-03-02 Inpatient WILY FeldmanLuz, SHILPAPM MEDI.01 [id number] [facility] 12:48:00 12:28:00 Musaddiq 98 [facility] 2022-09-26 2022-09-26 Outpatient Betty_Pato GREGORY DMG [id number] [facility] 00:00:00 00:00:00 0506 [facility] l [facility] 2022-09-26 2022-09-26 Outpatient Sheth_M DM DMG [id number] [facility] 00:00:00 00:00:00 1129 [facility] l [facility] 2022-07-25 2022-07-25 OFFICE STLMLC STLMLC [id number] Co mmon 00:00:00 00:00:00 VISIT Spirit ESTAB PT - CHI LEVEL 4 [facility] 2022-06-08 2022-06-09 Inpatient ANIVAL Pérez, HCAPM MEDI.01 [id number] [facility] 12:36:00 11:44:00 Tracie 48 [facility] 2022-06-08 2022-06-08 Outpatient ANIVAL Pérez, [facility] HCAPM [id number] [facility] 12:35:00 12:35:00 [facility] [id number] [facility] 2022-05-12 2022-05-12 Outpatient BWilliams [facility] DMG [id number] [facility] 07:10:00 07:10:00 0715 Medica l Group 2022-04-25 2022-04-25 (TEL) STLMLC STLMLC [id number] Co mmon 00:00:00 00:00:00 [facility] 2022-04-17 2022-04-17 (TEL) STLMLC STLMLC [id number] Co mmon 00:00:00 00:00:00 [facility] 2022-04-14 2022-04-14 OFFICE STLMLC STLMLC [id number] Co mmon 00:00:00 00:00:00 VISIT Spirit ESTAB PT - CHI LEVEL 4 [facility] 2022-03-28 2022-03-28 (TEL) STLMLC STLMLC [id number] Co mmon 00:00:00 00:00:00 [facility] 2022-03-23 2022-03-23 (TEL) STLMLC STLMLC [id number] Co mmon 00:00:00 00:00:00 [facility] 2022-03-23 2022-03-23 (TEL) STLMLC STLMLC [id number] Co mmon 00:00:00 00:00:00 [facility] 2022-03-02 2022-03-02 (TEL) STLMLC STLMLC [id number] Co mmon 00:00:00 00:00:00 [facility] 2022-02-22 2022-02-22 (TEL) STLMLC STLMLC [id number] Co mmon 00:00:00 00:00:00 [facility] 2022-02-06 2022-02-06 OFFICE STLMLC STLMLC [id number] Co mmon 00:00:00 00:00:00 VISIT [facility] PT LEVEL 3 [facility] 2021-12-30 2021-12-30 OFFICE STLMLC STLMLC [id number] Co mmon 00:00:00 00:00:00 VISIT [facility] PT - CHI LEVEL 4 [facility] 2021-12-05 2021-12-05 CAV Vontessie 2.16.840. 2.16.840.1. CLAC [id number] [facility] 22:00:00 23:00:00 Prabhu [id number]. [id number]. [id number] [place] [id number] 2021-11-25 2021-11-25 Outpatient R [facility] [id number] Univers 09:00:00 09:00:00 [id number] [facility] 2021-11-25 2021-11-25 Outpatient R UNKNOWN, [facility] [id number] Univers 09:00:00 09:00:00 [facility] 2021-11-24 2021-11-24 (TEL) STLMLC STLMLC [id number] Co mmon 00:00:00 00:00:00 [facility] 2021-11-18 2021-11-18 (TEL) STLMLC STLMLC [id number] Co mmon 00:00:00 00:00:00 [facility] 2021-11-15 2021-11-15 OFFICE STLMLC STLMLC [id number] Co mmon 00:00:00 00:00:00 VISIT [facility] PT - CHI LEVEL 4 [facility] 2021-11-13 2021-11-13 (TEL) STLMLC STLMLC [id number] Co mmon 00:00:00 00:00:00 [facility] 2021-11-10 2021-11-10 Laboratory Only, Ang Db Test [facility] 1.2.8 40.114 [id number] Univers 19:15:00 19:30:00 Only [facility] 350.1.13.10 [facility] 4.2.7.2.686 Sorin as EMMETT?BLEA [id number] [address] MEDICAL OFFICE BUILDING 2021-11-10 2021-11-10 Outpatient R MASSIMO [facility] [id number] Univers 19:15:00 19:15:00 [facility] 2021-11-08 2021-11-08 (TEL) STLMLC STLC [id number] Co mmon 00:00:00 00:00:00 [facility] 2021-10-25 2021-10-25 [place] [id number] [facility] 05:33:00 05:33:00 1228 [facility] 2021-10-20 2021-10-20 (TEL) STLMLC STLMLC [id number] Co mmon 00:00:00 00:00:00 [facility] 2021-10-12 2021-10-12 (TEL) STLMLC STLMLC [id number] Co mmon 00:00:00 00:00:00 [facility] 2021-10-12 2021-10-12 (TEL) STLMLC STLMLC [id number] Co mmon 00:00:00 00:00:00 [facility] 2021-09-30 2021-09-30 OFFICE STLMLC STLMLC [id number] Co mmon 00:00:00 00:00:00 VISIT [facility] PT - CHI LEVEL 4 [facility] 2021-09-12 2021-09-12 [facility] [id number] Univers 18:58:00 21:16:00 Gladis RODKIARA 350.1.13.10 [facility] TIA 4.2.7.2.686 [facility] [id number] [place] [id number] Branch 2021-09-12 2021-09-12 Emergency X CHRISTINE, [facility] ERT [id number] Univers 18:58:00 21:16:[address] [facility] 2021-08-31 2021-08-31 WELCOME TO STLMLC STLMLC [id number] Common 00:00:00 00:00:00 MEDICARE Spiri t PREV PHY - CHI EXAM [facility] 2021-08-31 2021-08-31 OFFICE STLMLC STLMLC [id number] Co mmon 00:00:00 00:00:00 VISIT [facility] ESTAB PT - CHI LEVEL 4 [facility] 2021-08-01 2021-08-01 OFFICE STLMLC STLMLC [id number] Co mmon 00:00:00 00:00:00 VISIT [facility] ESTAB PT - CHI LEVEL 4 [facility] 2021-07-18 2021-07-18 Outpatient STLMLC STLMLC [id number] Common 00:00:00 00:00:00 [facility] 2021-04-07 2021-04-07 Outpatient STLMLC STLMLC [id number] Common 00:00:00 00:00:00 [facility] 2021-03-17 2021-03-17 Outpatient DMG [id number] [id number] [facility] 11:00:00 11:00:00 0520 Med[facility] l Group 2020-12-31 2020-12-31 Outpatient STLMLC STLMLC [id number] Common 00:00:00 00:00:00 [facility] 2020-10-08 2020-10-08 Outpatient STLMLC STLMLC [id number] Common 00:00:00 00:00:00 [facility] 2020-09-29 2020-09-29 Outpatient STLMLC STLMLC [id number] Common 00:00:00 00:00:00 [facility] 2020-09-28 2020-09-28 Outpatient STLMLC STLMLC [id number] Common 00:00:00 00:00:00 [facility] 2020-08-13 2020-08-13 Outpatient STLMLC STLMLC [id number] Common 00:00:00 00:00:00 [facility] 2020-07-23 2020-07-23 Outpatient STLMLC STLMLC [id number] Common 00:00:00 00:00:00 [facility] 2020-07-09 2020-07-09 Outpatient [id number] Common 15:00:00 15:00:00 Mgv Spir [employer] [facility] Results Test Description Test Time Test Comments Results Result Comments Source SURGICAL 2023-03-08 16:02:00 Test Item Value Reference Range Interpretation Comme nts SURGICAL RUN DATE: (test 03/08/23 SHILPA green - LAB PAGE 1 RUN TIME: 1602 Specimen Inquiry RUN USER: INTERFACE code = PATIENT: ) GORAN BAUMAN 498 LOC: [place] U #: [id number] AGE/SX: 67/F [facility]: Mauricio Escobar MD : 56 BED: 1 DIS: 03/02/23 STATUS: DIS IN TLOC: SPEC #: [id number]:[facility]:[id number] RECD: 03/02/23523 STATUS: MELISA PIEDRA #: [id number] RAMAN: 03/01/231310 [facility] DR: Mauricio Escobar MD ENTERED: 03/02/23 SP TYPE: SURGICAL OTHR DR: Tracie Pérez MD ORDERED: [id number], [id number], ANATOMIC SPEC, SPECIMEN TRACK COPIES TO: Tracie Pérez MD [address] [phone] [place] [address] [facility] [address] [place] [address] PROCEDURE S: [id number] (03/02/23) [id number] (03/07/23) SPECIMEN TRACK (03/02/23) TISSUES: A. URETHRA NOS - LEFT UTERAL SACRAL EDOMETRIOSIS FINAL DIAGNOSIS Soft tissue, left uterosacral ligament, e xcisional biopsy:- Small fibrovascular adhesions with tattoo like pigment- Iron stain negative Comment: Negative for endometriosis/atypia/malignancy. Suggest clinical correlation. GROSS DESCRIPTION Left utero sacral endometriosis. It consists of a single brown tissue fragment measuring 0.8x 0.5 x 0.2 cm. All as A1 . Technical tissue processing and slide preparation performed at [facility],[id number], [place] [address] Unless gross only, the diagnosis is based upon microscopic examination.Immu nohistochemistry: This test was developed and its performance characteristicsdetermined by this laboratory. It has not been approved nor does it need approval by the USFDA. Appropriate positive and negative controls are reviewed and judged to be acceptable.This laboratory is certified unde r the Clinical Laboratory Improvement Amendments (CLIA-88)as qualified to perform high complexity clin [facility] laboratory testing. CONTINUED ON NEXT PAGE RUN DATE: 03/08/23 SHILPA Chavis d - LAB PAGE 2 RUN TIME: 1602 Specimen Inquiry RUN USER: INTERFACE SPEC #: 23:[facility]:[id number] PATIENT: GORAN BAUMAN #[id number] (Continued) MICROSCOPIC DESCRIPTION Micr oscopic examination is performed on all specimens and the findings areincorporated into the fin al diagnosis. Please see diagnosis for findings. CLINICAL INFORMATION Stage III uterovaginal prolapse, u terine prolapse with a predominant defect, which isrecurrent. The patient had surgery 2 years ago (a v aginal prolapse repair), voidingdysfunction (incomplete bladder emptying). Signed SIGNATURE ON FILE Bradley Calloway 03/08/23 1602 END OF REPORT [id number] 15:38:00 Test Item Value Reference Range Interpretation Comments SURGICAL (test code = SR) R UN DATE: 03/06/23 [facility] PAGE 1 RUN TIME: 1538 Specimen Inquiry RUN USER: INTERFACE P ATIENT: GORAN BAUMAN LOC: [place] U #: [id number] AGE/SX: 67/F ROOM: AzraDanyellPO10 RE02/28/23REG DR: Mauricio Escobar MD : 56 BED: 1 DIS: 03/02/23 STATUS: DIS IN TLOC: SPEC #: 23:[facility]:[id number] RECD: 03/01/23 STATUS: MELISA PIEDRA #: [id number] RAMAN: 03/01/23-[address]: Mauricio Escobar MD ENTERED: 03/01/23 SP TYPE: SURGICAL OTHR DR: Tracie Pérez MD ORDERED: [id number], ANATOMIC SPEC, SPECIMEN TRACK COPIES TO: Tracie Pérez MD [address] [phone] [place] [address] [place] [address] PROCEDURES: [id number] (03/06/23) SPECIMEN TRACK (03/01/23) TISSUES: A. UTERUS - UTERUS, CERVIX, BILATERAL TUBES, OVARIES FINAL DIAGNOSIS Uterus (112 g), fallopian tubes and ovaries, hysterectomy and bilateralsalpingo-oophorectomie s: - Cervix, mild chronic cervicitis with squamous metaplasia and Nabothian cyst- Endometrium, indeterminate pattern- Myometrium, leiomyomata x5, ranging from 0.5 to 1.3 cm- Serosa, no morphological alterations Ovaries:- Atrophic changes, bilaterally; small fibrovascular adhesion containing tattoo likepigment Fallopian tubes:- Wall and lumen identified, bilaterally; small fibrovascular adhesion containing tattoolike pigment Comment: Negative for atypia/malignancy. Suggest clinical correlation. CONTINUED ON NEXT PAGE Kennedy UN DATE: 03/06/23 [facility] PAGE 2 RUN TIME: 1538 Specimen Inquiry RUN USER: INTERFACE S PEC #: 23:[facility]:[id number] PATIENT: GORAN BAUMAN #[id number] (Continued) GROSS DESCRIPTION Uterus with bilateral fallopian tubes and ovaries. The uterus measures cornu to cornu 6.5cm, posterior to anterior 4.5 cm and fundus to cervix 9.5 cm. These uterus weighs 112 g. The cervix measures 3.8 x 3.5 cm with a cervical os transverse diameter of 0.6 cm. Theuterus is bivalved to reveal a pink smooth cervical canal of 3.2 cm in length andendometrial cavity measuring 2.7 x 1.8 cm. It is covered by endometrium of 0.2 cm inthickness. The uterine wall has a maximum thickness of 2.7 cm. Serial sectioning of theuterine wall reveals 5 white whirled well-circumscribed nodules ranging 0.5- 1.3 cm ingreatest dimension. The serosal surface is smooth and glistening. The attached rightovary measures 2.2 x 2 x 1.5 cm. Cut section reveals grossly unremarkable ovarianparenchyma. The right fallopian tube with attached fimbriated end measures 2.5 cm inlength and has a diameter of 0.6 cm. The left ovary measures 2.2 x 1.5 x 1.3 cm. Cutsections reveal grossly unremarkable bearing parenchyma. The left fallopian tube withfimbriated end measures 5.5 cm in length and has a diameter of 0.8 cm. A1 posterior cervixA2 anterior cervixA3 posterior endomyometriumA4 anterior endomyometriumA5-A7 section of nodulesA8 posterior reflection A9 right [id number] right fallopian tube cut surface with entire bisected fimbriated endA11 left ovary A12 left fallopian tube cut surface with entire bisected fimbriated end Technical tissue processing and slide preparation performed at [id number] , [place] [address] Unless gross only, the diagnosis is based upon microscopic examination.Immunohistochemistr y: This test was developed and its performance characteristicsdetermined by this laboratory. It has not been approved nor does it need approval by the USFDA. Appropriate positive and negative controls are reviewed and judged to be acceptable.This laboratory is certified under the Clinical Laboratory Improvement Amendments (CLIA-88)as qualified to perform high complexity clinical laboratory testing. MICROSCOPIC DESCRIPTION Microscopic examination is performed on all specimens and the findings areincorporated into the final diagnosis. Please see diagnosis for findings. CLINICAL INFORMATION Incomplete uterovaginal prolapse; apical prolapse CONTINUED ON NEXT PAGE R UN DATE: 03/06/23 [facility] PAGE 3 RUN TIME: 1538 Specimen Inquiry RUN USER: INTERFACE S JUN #: 23:[facility]:[id number] PATIENT: GORAN BAUMAN #[id number] (Continued) Signed SIGNATURE ON Bradley Reed 03/06/23 1538 END OF REPORT BASIC METABOLIC [id number] 06:47:00 Test Item Value Reference Range Interpretation Comments SODIUM (test code 141 mmol/L 134-147 N = NA) POTASSIUM (test 3.5 mmol/L 3.4-5.0 N code = K) CHLORIDE (test 110 mmol/L 100-108 H code = CL) CARBON DIOXIDE 28 mmol/L 21-32 N (test code = CO2) ANION GAP (test 3.0 GAP calc 4.0-15.0 L code = GAP) GLUCOSE (test code 97 MG/DL 70-110 N = GLU) BLOOD UREA 13 MG/DL 7-18 N NITROGEN (test code = BUN) GLOMERULAR >=60 max >60 The Glomerular FILTRATION RATE estimate estGFR Filtratio n Rate is a (test code = GFR) calculated parameterbased on serum Creatinin e, patient age and sex. GFR valuesless than 60 mL/min/1.73 square meters are su cative ofChronic Kidne y Disease. Values less than 15 mL/min/1.73squa re meters indicate Kidney failure. The calculation for GFR is based on the CK D-EPI (2020) calculat ion. This formulais race indifferent and is the recommended formula for GFR by the National Kidney Foundation for Adults.The GFR will not calculate i f the sex is unknown or if thepatient's ag e is <18 years. CREATININE (test 0.7 MG/DL 0.6-1.0 N code = CREAT) CALCIUM (test code 8.8 MG/DL 8.5-10.1 N = CA) CBC W/AUTO [id number] 06:32:00 Test Item Value Reference Range Interpretation Comments WHITE BLOOD CELL (test code = 14.0 K/mm3 3.5-11.0 H WBC) RED BLOOD CELL (test code = 3.82 M/mm3 4.70-6.10 L RBC) HEMOGLOBIN (test code = HGB) 11.5 G/DL 10.4-14.9 N HEMATOCRIT (test code = HCT) 34.5 % 31.5-44.1 N MEAN CELL VOLUME (test code = 90.3 Fl 84.5-98.6 N MCV) MEAN CELL HGB (test code = MCH) 30.1 pg 27.0-34.2 N MEAN CELL HGB CONCETRATION 33.3 G/DL 31.5-34.0 N (test code = MCHC) RED CELL DISTRIBUTION WIDTH 13.1 SD 11.5-14.5 N (test code = RDW) PLATELET COUNT (test code = 232 K/mm3 150-450 N PLT) MEAN PLATELET VOLUME (test code 10.90 fL 7.0-10.5 H = MPV) NEUTROPHIL % (test code = NT%) 77.5 % 40-76 H IMMATURE GRANULOCYTE % (test 0.6 % 0.0-5.0 N code = IG%) LYMPHOCYTE % (test code = LY%) 15.8 % 20.5-51.1 L MONOCYTE % (test code = MO%) 5.9 % 1.7-9.3 N EOSINOPHIL % (test code = EO%) 0.1 % 0.0-6.0 N BASOPHIL % (test code = BA%) 0.1 % 0.0-2.0 N NUCLEATED RBC % (test code = 0.0 /100WBC% 0.0-1.0 N NRBC%) NEUTROPHIL # (test code = NT#) 10.9 K/mm3 1.8-7.6 H IMMATURE GRANULOCYTE # (test 0.08 x10 3/uL 0.00-0.03 H code = IG#) LYMPHOCYTE # (test code = LY#) 2.2 K/mm3 0.6-3.2 N MONOCYTE # (test code = MO#) 0.8 K/mm3 0.3-1.1 N EOSINOPHIL # (test code = EO#) 0.0 K/mm3 0.0-0.4 N BASOPHIL # (test code = BA#) 0.0 K/mm3 0.0-0.1 N NUCLEATED RBC # (test code = 0.0 K/mm3 0.0-0.1 N NRBC#) MANUAL DIFF REQUIRED (test code NO DIFF/SCN CRITERIA = MDIFF) Comment: redundant order, do CBC in amTHROMBOPLASTIN TIME [id number] 06:49:00 Test Item Value Reference Range Interpretation Comments THROMBOPLASTIN TIME PARTIAL 25.5 SECONDS 26-35 L (test code = PTT) BASIC METABOLIC [id number] 04:50:00 Test Item Value Reference Range Interpretation Comments SODIUM (test code 142 mmol/L 134-147 N = NA) POTASSIUM (test 3.9 mmol/L 3.4-5.0 N code = K) CHLORIDE (test 110 mmol/L 100-108 H code = CL) CARBON DIOXIDE 29 mmol/L 21-32 N (test code = CO2) ANION GAP (test 3.0 GAP calc 4.0-15.0 L code = GAP) GLUCOSE (test code 106 MG/DL 70-110 N = GLU) BLOOD UREA 15 MG/DL 7-18 N NITROGEN (test code = BUN) GLOMERULAR >=60 max >60 The Glomerular FILTRATION RATE estimate estGFR Filtratio n Rate is a (test code = GFR) calculated parameterbased on serum Creatinin e, patient age and sex. GFR valuesless than 60 mL/min/1.73 square meters are su cative ofChronic Kidne y Disease. Values less than 15 mL/min/1.73squa re meters indicate Kidney failure. The calculation for GFR is based on the CK D-EPI (2020) calculat ion. This formulais race indifferent and is the recommended formula for GFR by the National Kidney Foundation for Adults.The GFR will not calculate i f the sex is unknown or if thepatient's ag e is <18 years. CREATININE (test 0.6 MG/DL 0.6-1.0 N code = CREAT) CALCIUM (test code 9.1 MG/DL 8.5-10.1 N = CA) CBC W/AUTO [id number] 04:39:00 Test Item Value Reference Range Interpretation Comments WHITE BLOOD CELL (test code = 7.6 K/mm3 3.5-11.0 N WBC) RED BLOOD CELL (test code = 4.30 M/mm3 4.70-6.10 L RBC) HEMOGLOBIN (test code = HGB) 13.1 G/DL 10.4-14.9 N HEMATOCRIT (test code = HCT) 39.4 % 31.5-44.1 N MEAN CELL VOLUME (test code = 91.6 Fl 84.5-98.6 N MCV) MEAN CELL HGB (test code = MCH) 30.5 pg 27.0-34.2 N MEAN CELL HGB CONCETRATION 33.2 G/DL 31.5-34.0 N (test code = MCHC) RED CELL DISTRIBUTION WIDTH 12.9 SD 11.5-14.5 N (test code = RDW) PLATELET COUNT (test code = 249 K/mm3 150-450 N PLT) MEAN PLATELET VOLUME (test code 10.00 fL 7.0-10.5 N = MPV) NEUTROPHIL % (test code = NT%) 54.6 % 40-76 IMMATURE GRANULOCYTE % (test 0.1 % 0.0-5.0 N code = IG%) LYMPHOCYTE % (test code = LY%) 34.9 % 20.5-51.1 N MONOCYTE % (test code = MO%) 6.3 % 1.7-9.3 N EOSINOPHIL % (test code = EO%) 3.6 % 0.0-6.0 N BASOPHIL % (test code = BA%) 0.5 % 0.0-2.0 N NUCLEATED RBC % (test code = 0.0 /100WBC% 0.0-1.0 N NRBC%) NEUTROPHIL # (test code = NT#) 4.1 K/mm3 1.8-7.6 N IMMATURE GRANULOCYTE # (test 0.01 x10 3/uL 0.00-0.03 N code = IG#) LYMPHOCYTE # (test code = LY#) 2.6 K/mm3 0.6-3.2 N MONOCYTE # (test code = MO#) 0.5 K/mm3 0.3-1.1 N EOSINOPHIL # (test code = EO#) 0.3 K/mm3 0.0-0.4 N BASOPHIL # (test code = BA#) 0.0 K/mm3 0.0-0.1 N NUCLEATED RBC # (test code = 0.0 K/mm3 0.0-0.1 N NRBC#) MANUAL DIFF REQUIRED (test code NO DIFF/SCN CRITERIA = MDIFF) UA RFLX MICR CULT IF [id number] 03:38:00 Test Item Value Reference Range Interpretation Comments UA COLOR (test code = COLU) YELLOW discript YEL/STRAW UA APPEARANCE (test code = CLEAR discript CLEAR APPU) UA GLUCOSE DIPSTICK (test NEGATIVE mg/dL NEG code = DGLUU) UA BILIRUBIN DIPSTICK (test NEGATIVE mg/dL NEG code = BILU) UA KETONE DIPSTICK (test NEGATIVE mg/dL NEG code = KETU) UA SPECIFIC GRAVITY (test <=1.005 SG 1.005-1.030 code = SGU) UA BLOOD DIPSTICK (test TRACE mg/DL NEG A code = DAVIN) UA PH DIPSTICK (test code = 6.0 pH UNITS 5.0-7.0 ORLIN) UA PROTEIN DIPSTICK (test NEGATIVE mg/dL NEG code = PROU) UA UROBILINIOGEN DIPSTICK 0.2 mg/dL <2.0 (test code = URO) UA NITRITE DIPSTICK (test NEGATIVE SCREEN NEG code = PEDRO PABLO) UA LEUKOCYTE ESTERASE NEGATIVE Leuk/mcL NEGATIVE DIPSTICK (test code = LEUU) Indication for culture: RiskForSepsis-no oth srcSOURCE OF URINE: CLEAN CATCHUR HCG [id number] 03:38:00 Test Item Value Reference Range Interpretation Comments UR HCG QUAL (test code = HCGQLU) NEGATIVE NEGATIVE Indication for culture: RiskForSepsis-no oth srcSOURCE OF URINE: CLEAN CATCH COMPREHENSIVE METABOLIC [id number] 14:39:00 Test Item Value Reference Range Interpretation Comments SODIUM (test code 141 mmol/L 134-147 N = NA) POTASSIUM (test 3.1 mmol/L 3.4-5.0 L code = K) CHLORIDE (test 106 mmol/L 100-108 N code = CL) CARBON DIOXIDE 33 mmol/L 21-32 H (test code = CO2) ANION GAP (test 2.0 GAP calc 4.0-15.0 L code = GAP) GLUCOSE (test code 108 MG/DL 70-110 N = GLU) BLOOD UREA 19 MG/DL 7-18 H NITROGEN (test code = BUN) GLOMERULAR >=60 max >60 The Glomerular FILTRATION RATE estimate estGFR Filtratio n Rate is a (test code = GFR) calculated parameterbased on serum Creatinin e, patient age and sex. GFR valuesless than 60 mL/min/1.73 square meters are su cative ofChronic Kidne y Disease. Values less than 15 mL/min/1.73squa re meters indicate Kidney failure. The calculation for GFR is based on the CK D-EPI (2020) calculat ion. This formulais race indifferent and is the recommended formula for GFR by the National Kidney Foundation for Adults.The GFR will not calculate i f the sex is unknown or if thepatient's ag e is <18 years. CREATININE (test 0.9 MG/DL 0.6-1.0 N code = CREAT) TOTAL PROTEIN 7.3 G/DL 6.4-8.2 N (test code = PROT) ALBUMIN (test code 3.7 G/DL 3.4-5.0 N = ALB) GLOBULIN (test 3.6 GM/dL code = GLOB) ALBUMIN/GLOBULIN 1.0 RATIO 1.2-2.2 L RATIO (test code = A/G) CALCIUM (test code 9.5 MG/DL 8.5-10.1 N = CA) BILIRUBIN TOTAL 0.30 MG/DL 0.2-1.2 N (test code = BILT) SGOT/AST (test 11 Unit/L 15-37 L code = AST) SGPT/ALT (test 20 Unit/L 12-78 N code = ALT) ALKALINE 92 Unit/L 45-117 N PHOSPHATASE TOTAL (test code = ALKP) BASIC METABOLIC [id number] 16:33:00 Test Item Value Reference Range Interpretation Comments SODIUM (test code 138 mmol/L 134-147 N = NA) POTASSIUM (test 3.0 mmol/L 3.4-5.0 L code = K) CHLORIDE (test 104 mmol/L 100-108 N code = CL) CARBON DIOXIDE 33 mmol/L 21-32 H (test code = CO2) ANION GAP (test 1.0 GAP calc 4.0-15.0 L code = GAP) GLUCOSE (test code 91 MG/DL 70-110 N = GLU) BLOOD UREA 17 MG/DL 7-18 N NITROGEN (test code = BUN) GLOMERULAR >=60 max >60 The Glomerular FILTRATION RATE estimate estGFR Filtratio n Rate is a (test code = GFR) calculated parameterbased on serum Creatinin e, patient age and sex. GFR valuesless than 60 mL/min/1.73 square meters are su cative ofChronic Kidne y Disease. Values less than 15 mL/min/1.73squa re meters indicate Kidney failure. The calculation for GFR is based on the CK D-EPI (2020) calculat ion. This formulais race indifferent and is the recommended formula for GFR by the National Kidney Foundation for Adults.The GFR will not calculate i f the sex is unknown or if thepatient's ag e is <18 years. CREATININE (test 0.7 MG/DL 0.6-1.0 N code = CREAT) CALCIUM (test code 9.4 MG/DL 8.5-10.1 N = CA) PROTHROMBIN [id number] 16:28:00 Test Item Value Reference Range Interpretation Comments PT PATIENT (test 12.7 SECONDS 9.3-12.9 N code = PTP) INTERNATIONAL NORMAL 1.14 INR Unit 0.8-1.2 N TARGE T INR BY RATIO (test code = INDICATIO N Indication INR) INR1. Prophylax is of venous thrombos is 2.0 - 3.0 (orthoped ic surgery), Proph ylaxis of venous throm bosis (other than hig h-risk surgery), Treat ment of Deep Vein Thrombosis/Pulm onary Embolism, Preve ntion of systemic emb olism - Tissue heart va lves, Acute Myocardia l Infarction (to prevent systemic emboli sm), Valvular heart disease, Acute Myocardial Infa rction (to prevent sys temic embolism), Valv ular heart disease, Atrial Fibrillation, Bileaflet mecha nical valve in aortic position.2. Mec hanical prosthetic valv es (high risk), 2. 5 - 3.5 Presence of Lup us Anticoagulant o r Antiphospholipi d Antibodies, Pre vention of systemic emb olism - Acute Myocardia l Infarction (to prevent recurrent infar ct). THROMBOPLASTIN TIME [id number] 16:28:00 Test Item Value Reference Range Interpretation Comments THROMBOPLASTIN TIME PARTIAL 37.7 SECONDS 26-35 H (test code = PTT) CBC W/AUTO [id number] 16:22:00 Test Item Value Reference Range Interpretation Comments WHITE BLOOD CELL (test code = 9.1 K/mm3 3.5-11.0 N WBC) RED BLOOD CELL (test code = 4.83 M/mm3 4.70-6.10 N RBC) HEMOGLOBIN (test code = HGB) 14.5 G/DL 10.4-14.9 N HEMATOCRIT (test code = HCT) 43.8 % 31.5-44.1 N MEAN CELL VOLUME (test code = 90.7 Fl 84.5-98.6 N MCV) MEAN CELL HGB (test code = MCH) 30.0 pg 27.0-34.2 N MEAN CELL HGB CONCETRATION 33.1 G/DL 31.5-34.0 N (test code = MCHC) RED CELL DISTRIBUTION WIDTH 13.0 SD 11.5-14.5 N (test code = RDW) PLATELET COUNT (test code = 304 K/mm3 150-450 N PLT) MEAN PLATELET VOLUME (test code 10.40 fL 7.0-10.5 N = MPV) NEUTROPHIL % (test code = NT%) 62.5 % 40-76 N IMMATURE GRANULOCYTE % (test 0.1 % 0.0-5.0 N code = IG%) LYMPHOCYTE % (test code = LY%) 27.8 % 20.5-51.1 N MONOCYTE % (test code = MO%) 6.4 % 1.7-9.3 N EOSINOPHIL % (test code = EO%) 2.8 % 0.0-6.0 N BASOPHIL % (test code = BA%) 0.4 % 0.0-2.0 N NUCLEATED RBC % (test code = 0.0 /100WBC% 0.0-1.0 N NRBC%) NEUTROPHIL # (test code = NT#) 5.7 K/mm3 1.8-7.6 N IMMATURE GRANULOCYTE # (test 0.01 x10 3/uL 0.00-0.03 N code = IG#) LYMPHOCYTE # (test code = LY#) 2.5 K/mm3 0.6-3.2 N MONOCYTE # (test code = MO#) 0.6 K/mm3 0.3-1.1 N EOSINOPHIL # (test code = EO#) 0.3 K/mm3 0.0-0.4 N BASOPHIL # (test code = BA#) 0.0 K/mm3 0.0-0.1 N NUCLEATED RBC # (test code = 0.0 K/mm3 0.0-0.1 N NRBC#) MANUAL DIFF REQUIRED (test code NO DIFF/SCN CRITERIA = MDIFF) - XR CHEST 1 [id number] 16:04:00 [facility] 1955 Sex: F Name: GORAN BAUMAN [facility] : 1955 Age/S: 67 / F [id number] Unit #: [id number] Loc: [place] [address] Phys: Tracie Pérez MD Acct: [id number] Dis Date: Status: PRE [facility] [place] PHONE #: [phone] Exam Date: 02/27/2023 1350 FAX #: Reason: PRE OP EXAMS: CPT: [id number] XR CHEST 1 V 56441 Fluoro Time: DAP (Gy m2): Air Kerma (mGy): EXAM: - XR CHEST 1 V CLINICAL HISTORY: PRE OP TECHNIQUE: Single frontal view. COMPARISON: Chest radiograph 06/07/2022 LOCATION: H65 FINDINGS: The trachea appears normal. The mediastinum and cardiac silhouette are within normal limits for size. The lungs are clear. No pleural effusions. Visualized soft tissues and osseous structures are grossly unremarkable. IMPRESSION: No acute cardiopulmonary process. at 1604 Reported and signed by: Hussein Jimenez D.O. CC: Tracie Pérez MD PAGE 1 Signed Report Name: GORAN BAUMAN [facility] : 1955 Age/S: 67 / F [id number] Unit #: [id number] Loc: [place] [address] Phys: Tracie Pérez MD Acct: [id number] Dis Date: Status: PRE [facility]C PHONE #: [phone] Exam Date: 02/27/2023 154 FAX #: Reason: PRE OP EXAMS: CPT: [id number] XR CHEST 1 V 38016 Fluoro Time: DAP (Gy m2): Air Kerma (mGy): (Continued) Technologist: JACKELINE DWYER TrnscbDate/Time: 02/27/2023 (1604) [email or web address] Orig Print D/T: S: 02/27/2023 (1607) PAGE 2 Signed ReportCBC W/AUTO [id number] 05:24:00 Test Item Value Reference Range Interpretation Comments WHITE BLOOD CELL (test code = 15.5 K/mm3 3.5-11.0 H WBC) RED BLOOD CELL (test code = 3.94 M/mm3 4.70-6.10 L RBC) HEMOGLOBIN (test code = HGB) 12.1 G/DL 10.4-14.9 N HEMATOCRIT (test code = HCT) 37.2 % 31.5-44.1 N MEAN CELL VOLUME (test code = 94.4 Fl 84.5-98.6 N MCV) MEAN CELL HGB (test code = MCH) 30.7 pg 27.0-34.2 N MEAN CELL HGB CONCETRATION 32.5 G/DL 31.5-34.0 N (test code = MCHC) RED CELL DISTRIBUTION WIDTH 12.9 SD 11.5-14.5 N (test code = RDW) PLATELET COUNT (test code = 232 K/mm3 150-450 N PLT) MEAN PLATELET VOLUME (test code 9.90 fL 7.0-10.5 N = MPV) NEUTROPHIL % (test code = NT%) 87.2 % 40-76 H IMMATURE GRANULOCYTE % (test 0.3 % 0.0-5.0 N code = IG%) LYMPHOCYTE % (test code = LY%) 8.1 % 20.5-51.1 L MONOCYTE % (test code = MO%) 4.2 % 1.7-9.3 N EOSINOPHIL % (test code = EO%) 0.1 % 0.0-6.0 N BASOPHIL % (test code = BA%) 0.1 % 0.0-2.0 N NUCLEATED RBC % (test code = 0.0 /100WBC% 0.0-1.0 N NRBC%) NEUTROPHIL # (test code = NT#) 13.5 K/mm3 1.8-7.6 H IMMATURE GRANULOCYTE # (test 0.05 x10 3/uL 0.00-0.03 H code = IG#) LYMPHOCYTE # (test code = LY#) 1.3 K/mm3 0.6-3.2 N MONOCYTE # (test code = MO#) 0.7 K/mm3 0.3-1.1 N EOSINOPHIL # (test code = EO#) 0.0 K/mm3 0.0-0.4 N BASOPHIL # (test code = BA#) 0.0 K/mm3 0.0-0.1 N NUCLEATED RBC # (test code = 0.0 K/mm3 0.0-0.1 N NRBC#) MANUAL DIFF REQUIRED (test code NO DIFF/SCN CRITERIA = MDIFF) PROTHROMBIN [id number] 09:56:00 Test Item Value Reference Range Interpretation Comments PT PATIENT (test 12.0 SECONDS 9.3-12.9 N code = PTP) INTERNATIONAL NORMAL 1.05 INR Unit 0.8-1.2 N TARGE T INR BY RATIO (test code = INDICATIO N Indication INR) INR1. Prophylax is of venous thrombos is 2.0 - 3.0 (orthoped ic surgery), Proph ylaxis of venous throm bosis (other than hig h-risk surgery), Treat ment of Deep Vein Thrombosis/Pulm onary Embolism, Preve ntion of systemic emb olism - Tissue heart va lves, Acute Myocardia l Infarction (to prevent systemic emboli sm), Valvular heart disease, Acute Myocardial Infa rction (to prevent sys temic embolism), Valv ular heart disease, Atrial Fibrillation, Bileaflet mecha nical valve in aortic position.2. Mec hanical prosthetic valv es (high risk), 2. 5 - 3.5 Presence of Lup us Anticoagulant o r Antiphospholipi d Antibodies, Pre vention of systemic emb olism - Acute Myocardia l Infarction (to prevent recurrent infar ct). THROMBOPLASTIN TIME [id number] 09:56:00 Test Item Value Reference Range Interpretation Comments THROMBOPLASTIN TIME PARTIAL 37.3 SECONDS 26-35 H (test code = PTT) BASIC METABOLIC [id number] 09:42:00 Test Item Value Reference Range Interpretation Comments SODIUM (test code = NA) 141 mmol/L 134-147 N POTASSIUM (test code = 3.2 mmol/L 3.4-5.0 L K) CHLORIDE (test code = 107 mmol/L 100-108 N CL) CARBON DIOXIDE (test 30 mmol/L 21-32 N code = CO2) ANION GAP (test code = 4.0 GAP calc 4.0-15.0 N GAP) GLUCOSE (test code = 71 MG/DL 70-110 N GLU) BLOOD UREA NITROGEN 18 MG/DL 7-18 N (test code = BUN) GLOMERULAR FILTRATION >=60 max estimate >60 RATE (test code = GFR) estGFR CREATININE (test code = 0.7 MG/DL 0.6-1.0 N CREAT) CALCIUM (test code = CA) 9.4 MG/DL 8.5-10.1 N COVID 19 INHOUSE [id number] 09:28:00 Test Item Value Reference Range Interpretation Comments COVID 19 INHOUSE AG NEGATIVE Negative Per manu facturer, (test code = negative result s should [id number]) be treated aspr esumptive and, if inconsi stent with clinical signs andsymptoms or necessary for patient man agement, should betested with an alternative mol ecular assay. Negative resultsdo not preclude SA RS-CoV-2 infection and s hould not be usedas the s ole basis for patient man agement decisions. Nega tive results should be considered in t he context of apatient's r ecent exposures, hist ory, presence of cli nicalsigns and symptoms co nsistent with COVID-19. CBC W/AUTO [id number] 09:19:00 Test Item Value Reference Range Interpretation Comments WHITE BLOOD CELL (test code = 10.1 K/mm3 3.5-11.0 N WBC) RED BLOOD CELL (test code = 4.27 M/mm3 4.70-6.10 L RBC) HEMOGLOBIN (test code = HGB) 13.1 G/DL 10.4-14.9 N HEMATOCRIT (test code = HCT) 39.7 % 31.5-44.1 N MEAN CELL VOLUME (test code = 93.0 Fl 84.5-98.6 N MCV) MEAN CELL HGB (test code = MCH) 30.7 pg 27.0-34.2 N MEAN CELL HGB CONCETRATION 33.0 G/DL 31.5-34.0 N (test code = MCHC) RED CELL DISTRIBUTION WIDTH 13.1 SD 11.5-14.5 N (test code = RDW) PLATELET COUNT (test code = 281 K/mm3 150-450 N PLT) MEAN PLATELET VOLUME (test code 10.10 fL 7.0-10.5 N = MPV) NEUTROPHIL % (test code = NT%) 66.9 % 40-76 N IMMATURE GRANULOCYTE % (test 0.3 % 0.0-5.0 N code = IG%) LYMPHOCYTE % (test code = LY%) 22.1 % 20.5-51.1 N MONOCYTE % (test code = MO%) 7.1 % 1.7-9.3 N EOSINOPHIL % (test code = EO%) 3.1 % 0.0-6.0 N BASOPHIL % (test code = BA%) 0.5 % 0.0-2.0 N NUCLEATED RBC % (test code = 0.0 /100WBC% 0.0-1.0 N NRBC%) NEUTROPHIL # (test code = NT#) 6.8 K/mm3 1.8-7.6 N IMMATURE GRANULOCYTE # (test 0.03 x10 3/uL 0.00-0.03 N code = IG#) LYMPHOCYTE # (test code = LY#) 2.2 K/mm3 0.6-3.2 N MONOCYTE # (test code = MO#) 0.7 K/mm3 0.3-1.1 N EOSINOPHIL # (test code = EO#) 0.3 K/mm3 0.0-0.4 N BASOPHIL # (test code = BA#) 0.1 K/mm3 0.0-0.1 N NUCLEATED RBC # (test code = 0.0 K/mm3 0.0-0.1 N NRBC#) MANUAL DIFF REQUIRED (test code NO DIFF/SCN CRITERIA = MDIFF) URINALYSIS [id number] 09:17:00 Test Item Value Reference Range Interpretation Comments UA GLUCOSE DIPSTICK (test NEGATIVE mg/dL NEG code = DGLUU) UA BILIRUBIN DIPSTICK (test NEGATIVE mg/dL NEG code = BILU) UA KETONE DIPSTICK (test NEGATIVE mg/dL NEG code = KETU) UA SPECIFIC GRAVITY (test 1.020 SG 1.005-1.030 code = SGU) UA BLOOD DIPSTICK (test NEGATIVE mg/DL NEG code = DAVIN) UA PH DIPSTICK (test code = 7.5 pH UNITS 5.0-7.0 A ORLIN) UA PROTEIN DIPSTICK (test NEGATIVE mg/dL NEG code = PROU) UA UROBILINIOGEN DIPSTICK 0.2 mg/dL <2.0 (test code = URO) UA NITRITE DIPSTICK (test NEGATIVE SCREEN NEG code = PEDRO PABLO) UA LEUKOCYTE ESTERASE NEGATIVE Leuk/mcL NEGATIVE DIPSTICK (test code = LEUU) Urine Specimen Type: Clean CatchUR HCG [id number] 09:17:00 Test Item Value Reference Range Interpretation Comments UR HCG QUAL (test code = HCGQLU) NEGATIVE NEGATIVE Urine Specimen Type: Clean Catch- XR CHEST 1 [id number] 08:42:00 [facility] [place] [place] : 1955 Sex: F Name: GORAN BAUMAN : 1955 Age/S: 67 / F [id number] [place] [address] Unit #: [id number] Loc: [place] [address] Phys: Benny Polanco MD Acct: [id number] Dis Date: Status: PRE [facility] [place]ONE #: [phone] Exam Date: 06/07/2022841 FAX #: Reason: PREOP EXAMS: CPT: [id number] XR CHEST 1 V 70496 Fluoro Time: DAP (Gy m2): Air Kerma (mGy): Dictation location: U19. CHEST, FRONTAL VIEW HISTORY: PREOP COMPARISON: None. FINDINGS: The lungs are clear without consolidation. No pleural effusion or pneumothorax. Theheart size is normal. Trace calcifications affect the aorta. Mild thoracic spondylosis. IMPRESSION: No evidence of acute cardiopulmonary disease. at 0842 Reported and signed by: Angeles Pompa M.D. CC: Tracie Pérez MD; Benny Polanco MD PAGE 1 Signed Report Name: GORAN BAUMANland : 1955 Age/S: 67 /F [address] [place] [address] Unit #: [id number] Loc: [place] [address] Phys: Benny Polanco MD Acct: [id number] Dis Date: Status: PRE [facility] [place] PHONE #: [phone] Exam Date: 06/07/2022 0842 FAX #: Reason: PREOP EXAMS: CPT: [id number] XR CHEST 1 V 86170 Fluoro Time: DAP (Gy m2): Air Kerma (mGy): (Continued) Technologist: Mirella Paul RT(R) Trnscb Date/Time: 06/07/2022 (42) [id number] Orig Print D/T: S: 06/07/2022 (0846) PAGE 2 Signed ReportHEMOGLOBIN [id number] 00:00:00 Test Item Value Reference Range Interpretation Comments A1C (test code = 4548-4) 5.7 RAD, KNEE, 3 VIEWS, [id number] 12:10:00FINAL REPORT LEFT KNEE THREE VIEWS History provided: Knee pain No fracture or dislocation. Joint space well maintained. No specific signs of joint effusion. Signed: Wander Raza Verified Date/Time: 08/16/2018 12:10:19 Reading Location: [facility] Radiology Reading Room RAD, CHEST, 2 [id number] 11:45:00Reason for Exam:->COPDFINAL REPORT History provided: COPD CHEST PA AND LATERAL Comparison studies: None Heart size normal. Lungs hyperexpanded but clear, and vascularity normal. IMPRESSION: Hyperexpanded but clear chest Signed: Wander Raza Verified Date/Time: 08/16/2018 11:45:43 Reading Location: [facility] Radiology Reading Room
[2023-08-02] MEDS ORDERED: MORPHINE 4 MG/ML SYR ONE (17:03)
[2023-08-02] MEDS ORDERED: ONDANSETRON 4 MG (ODT) TAB ONE (17:03)
--- NOTE | 2023-08-02 17:08 | RAD REPORT ---
EXAM DESCRIPTION: CT - Knee Left Wo Con - 08/02/2023 4:55 pm CLINICAL HISTORY: pain, swelling Knee pain and swelling COMPARISON: No comparisons FINDINGS: Mild tricompartmental arthritic changes are present. Small ossific loose bodies are seen i n joint space. There is no evidence of acute fracture or dislocation. No aggressive bone lesion is se en. Patella is slightly laterally positioned relative to the trochlear groove. There is a large joint effusion present. No soft tissue mass hematoma is seen. IMPRESSION: Large joint effusion noted. No fracture or dislocation seen.
--- NOTE | 2023-08-02 17:56 | RAD REPORT ---
EXAM DESCRIPTION: US - Extremity Venous Uni Ltd - 08/02/2023 5:47 pm CLINICAL HISTORY: SWELLING Leg swelling and edema. COMPARISON: No comparisons FINDINGS: Left lower extremity venous system was interrogated with Doppler technique. Normal flow, c ompressibility and augmentation was noted. There is no DVT present. IMPRESSION: No evidence of left lower extremity deep venous thrombosis.
--- NOTE | 2023-08-02 18:07 | ER ---
Nurse's Notes [facility] Name: Renetta Bauman Age: 68 yrs Sex: Female : 1955 Arrival Date: 08/02/2023 Time: 16:00 Bed 5 Private MD: Diagnosis: Effusion, left knee;Pain in left knee Presentation: 08/02 16:10 Chief complaint: Patient states: Left knee pain - swelling since yesterday. Coronavirus ld1 screen: At this time, the client does not indicate any symptoms associated with coronavirus-19. Ebola Screen: No symptoms or risks identified at this time. Risk Assessment: Do you want to hurt yourself or someone else? Patient reports no desire to harm self or others. Onset of symptoms was August 02, 2023. 16:10 Method Of Arrival: Wheelchair ld1 16:10 Acuity: EVITA 3 ld1 16:11 Initial Sepsis Screen: Does the patient meet any 2 criteria? No. Patient's initial ld1 sepsis screen is negative. Does the patient have a suspected source of infection? No. Patient's initial sepsis screen is negative. Triage Assessment: 16:11 General: Appears in no apparent distress. comfortable, Behavior is calm, cooperative, ld1 appropriate for age. Pain: Complains of pain in left knee Pain does not radiate. Pain currently is 8 out of 10 on a pain scale. Quality of pain is described as throbbing, Pain began suddenly, Is continuous. EENT: No signs and/or symptoms were reported regarding the EENT system. Neuro: Level of Consciousness is awake, alert, obeys commands, Oriented to person, place, time, situation. Cardiovascular: Capillary refill < 3 seconds Patient's skin is warm and dry. Respiratory: Airway is patent Respiratory effort is even, unlabored. GI: Abdomen is round non-distended. : No signs and/or symptoms were reported regarding the genitourinary system. Derm: No signs and/or symptoms reported regarding the dermatologic system. Musculoskeletal: No signs and/or symptoms reported regarding the musculoskeletal system. Historical: - Allergies: 16:11 No Known Allergies; ld1 - PMHx: 16:11 Hypertensive disorder; ld1 - PSHx: 16:11 Right knee surgery; ld1 - Immunization history:: Adult Immunizations up to date. - Social history:: Smoking status: Patient reports the use of cigarette tobacco products, smokes one pack cigarettes per day. Patient/guardian denies using alcohol. Screenin:52 [facility] ED Fall Risk Assessment (Adult) History of falling in the last 3 months, kc6 including since admission No falls in past 3 months (0 pts) Confusion or Disorientation No (0 pts) Intoxicated or Sedated No (0 pts) Impaired Gait No (0 pts) Mobility Assist Device Used No (0 pt) Altered Elimination No (0 pt) Score/Fall Risk Level 0 - 2 = Low Risk. Abuse screen: Denies threats or abuse. Denies injuries from another. Nutritional screening: No deficits noted. Tuberculosis screening: No symptoms or risk factors identified. Assessment: 16:11 Reassessment: see triage assessment. kc6 17:11 Reassessment: Patient appears in no apparent distress at this time. No changes from kc6 previously documented assessment. Patient and/or family updated on plan of care and expected duration. Pain level reassessed. Patient is alert, oriented x 3, equal unlabored respirations, skin warm/dry/pink. Vital Signs: 16:11 BP 125 / 82; Pulse 74; Resp 18; Temp 98.2(O); Pulse Ox 99% on R/A; Weight 69.85 kg; ld1 Height 5 ft. 7 in. ; Pain 8/10; 16:11 Body Mass Index 24.12 (69.85 kg, 170.18 cm) ld1 16:11 Pain Scale: Adult ld1 ED Course: 16:03 Patient arrived in ED. mg5 16:04 Angela Nye PA-C is PHCP. sb4 16:04 Ozzy Smith DO is Attending Physician. sb4 16:10 Triage completed. ld1 16:11 Arm band placed on right wrist. ld1 16:49 Laura Doan, MAL is Primary Nurse. kc6 16:52 Patient has correct armband on for positive identification. Bed in low position. Call kc6 light in reach. Side rails up X2. Adult w/ patient. Client placed on continuous cardiac and pulse oximetry monitoring. NIBP monitoring applied. 16:57 Knee Left Wo Con In Process Unspecified. EDMS 17:49 Extremity Venous Uni Ltd US In Process Unspecified. EDMS 18:06 Jose Joyner MD is Referral Physician. sb4 18:20 No provider procedures requiring assistance completed. Patient did not have IV access kc6 during this emergency room visit. Administered Medications: 17:06 Drug: morphine IM 4 mg IM once Route: IM; Site: right deltoid; kc6 17:38 Follow up: Response: No adverse reaction; Pain is decreased; RASS: Alert and Calm (0) kc6 17:06 Drug: Ondansetron Oral Disintegrating Tablet Oral Disintegrating Tablet 4 mg PO once kc6 Route: PO; 17:38 Follow up: Response: No adverse reaction kc6 18:10 Drug: Dexamethasone IM 10 mg IM once Route: IM; Site: left deltoid; kc6 18:20 Follow up: Response: No adverse reaction kc6 18:10 Drug: [place] PO 10 mg-325 mg 1 tabs PO once Route: PO; kc6 18:20 Follow up: Response: No adverse reaction; Pain is decreased; RASS: Alert and Calm (0) kc6 Medication: 18:20 VIS not applicable for this client. kc6 Outcome: 18:06 Discharge ordered by . sb4 18:20 Discharged to home via wheelchair, with family, kc6 18:20 Condition: stable 18:20 Discharge instructions given to patient, Instructed on discharge instructions, follow up and referral plans. medication usage, Demonstrated understanding of instructions, follow-up care, medications, Prescriptions given X 2, 18:20 Patient left the ED. kc6 Signatures: Dispatcher [employer] EDMS Kristie Smith RN RN foster1 Laura Doan RN RN [id number] Angela Nye PA-C PABrian sb4 Sylvia Cruz mg5
--- NOTE | 2023-08-02 18:07 | EDPHYS ---
Physician Documentation [facility] Name: Renteta Bauman Age: 68 yrs Sex: Female : 1955 Arrival Date: 08/02/2023 Time: 16:00 Bed 5 Private MD: ED Physician Ozzy Smith HPI: 08/02 16:30 This 68 yrs old Female presents to ER via Wheelchair with complaints of Knee Pain - sb4 Swelling. 16:30 The patient presents with pain, that is acute, swelling. The complaints affect the left sb4 knee. Onset: The symptoms/episode began/occurred yesterday, and became worse today. Modifying factors: The symptoms are alleviated by remaining still, the symptoms are aggravated by movement, weight bearing, bending knee. Associated signs and symptoms: Pertinent positives: swelling, Pertinent negatives calf tenderness, numbness, tingling, warmth. Treatment prior to arrival includes: prescription medications, hydrocodone. The patient has not experienced similar symptoms in the past. 16:33 patient states her left knee was causing her some pain yesterday but she denies any sb4 injury. states today is was very swollen and more painful. Historical: - Allergies: 16:11 No Known Allergies; ld1 - PMHx: 16:11 Hypertensive disorder; ld1 - PSHx: 16:11 Right knee surgery; ld1 - Immunization history:: Adult Immunizations up to date. - Social history:: Smoking status: Patient reports the use of cigarette tobacco products, smokes one pack cigarettes per day. Patient/guardian denies using alcohol. ROS: 16:33 Constitutional: Negative for fever, chills, and weight loss, sb4 16:33 MS/extremity: Positive for pain, swelling, tenderness, of the left knee, 16:33 All other systems are negative, Exam: 16:33 Constitutional: This is a well developed, well nourished patient who is awake, alert, sb4 and in no acute distress. Head/Face: Normocephalic, atraumatic. Eyes: Extra-ocular motions intact. Periorbital areas with no swelling, redness, or edema. ENT: Mucous membranes moist. Skin: Warm, dry with normal turgor. Normal color with no rashes, no lesions, and no evidence of cellulitis. Neuro: Awake and alert, GCS 15, oriented to person, place, time, and situation. Motor strength 5/5 in all extremities. Sensory grossly intact. Psych: Awake, alert, with orientation to person, place and time. Behavior, mood, and affect are within normal limits. 16:33 Musculoskeletal/extremity: ROM: limited active range of motion due to pain, in the left knee, limited passive range of motion due to pain, in the left knee, Circulation is intact in all extremities. Pulses: are normal with no appreciated deficits, Sensation intact. Vital Signs: 16:11 BP 125 / 82; Pulse 74; Resp 18; Temp 98.2(O); Pulse Ox 99% on R/A; Weight 69.85 kg; ld1 Height 5 ft. 7 in. ; Pain 8/10; 16:11 Body Mass Index 24.12 (69.85 kg, 170.18 cm) ld1 16:11 Pain Scale: Adult ld1 MDM: 16:18 Patient medically screened. sb4 16:33 Differential diagnosis: DVT, joint effusion, contusion, sprain, strain. 4 18:05 Data reviewed: vital signs, nurses notes, radiologic studies, and as a result, I will sb4 discharge patient. Care significantly affected by the following chronic conditions: Hypertension. Counseling: I had a detailed discussion with the patient and/or guardian regarding the historical points, exam findings, and any diagnostic results supporting the discharge/admit diagnosis, radiology results, the need for outpatient follow up, a orthopedic surgeon, to return to the emergency department if symptoms worsen or persist or if there are any questions or concerns that arise at home, smoking cessation. 08/02 16:19 Order name: Extremity Venous Uni Ltd ; Complete Time: 17:58 sb4 08/02 16:22 Order name: Knee Left Wo Con; Complete Time: 17:24 EDMS 08/02 16:36 Order name: Ice pack; Complete Time: 16:49 sb4 Administered Medications: 17:06 Drug: morphine IM 4 mg IM once Route: IM; Site: right deltoid; kc6 17:38 Follow up: Response: No adverse reaction; Pain is decreased; RASS: Alert and Calm (0) kc6 17:06 Drug: Ondansetron Oral Disintegrating Tablet Oral Disintegrating Tablet 4 mg PO once kc6 Route: PO; 17:38 Follow up: Response: No adverse reaction kc6 18:10 Drug: Dexamethasone IM 10 mg IM once Route: IM; Site: left deltoid; kc6 18:20 Follow up: Response: No adverse reaction kc6 18:10 Drug: [place] PO 10 mg-325 mg 1 tabs PO once Route: PO; kc6 18:20 Follow up: Response: No adverse reaction; Pain is decreased; RASS: Alert and Calm (0) kc6 Disposition: 16:37 I was immediately available on-site in the Emergency Department for consultation in the ms3 care of the patient. Disposition Summary: 08/02/23 18:06 Discharge Ordered Notes: Location: Home sb4 Condition: Stable sb4 Diagnosis - Effusion, left knee sb4 - Pain in left knee sb4 Followup: sb4 - With: Jose Joyner MD - When: 1 week - Reason: Recheck today's complaints, Re-evaluation by your physician Discharge Instructions: - Discharge Summary Sheet sb4 - Knee Effusion, [id number] sb4 - Acute Knee Pain, Adult, [id number] sb4 Forms: - Medication Reconciliation Form sb4 - Thank You Letter sb4 - Antibiotic Education sb4 - Prescription Opioid Use sb4 - Patient Portal Instructions sb4 - Leadership Thank You Letter sb4 Prescriptions: - Tramadol 50 mg Oral Tablet - take 1 tablet ORAL route every 8 hours as needed; 12 tablet; Refills: 0, sb4 Product Selection Permitted - Medrol (Arthur) 4 mg Oral Tablets, Dose Pack - take 1 tablet ORAL route as directed - follow package instructions; 1 packet; sb4 Refills: 0, Product Selection Permitted Signatures: Dispatcher [employer] EDOzzy Mcallister DO DO ms3 Kristie Smith RN RN ld1 Laura Doan RN RN kc6 Angela Nye PA-C PABrian sb4
[2023-08-02] MEDS ORDERED: dexAMETHasone 10 MG/ML VIAL ONE (18:17)
[2023-08-02] MEDS ORDERED: HYDROCODONE/APAP 10/325 TAB ONE (18:19)
[2023-08-02 20:25] VITALS: BP 125/82; TEMP 98.2; O2SAT 99
== END 2023-08-02 18:20 | disposition home or self-care (01) ==
LOC: ER 16:00
DX: M25.462 Effusion, left knee (principal); I10 Essential (primary) hypertension; F17.210 Nicotine dependence, cigarettes, uncomplicated
CPT/HCPCS: 73700; 93971; 96372; 99284; Q0162; J1100